=== PATIENT | female | born 1945 | race Two or more races ===

== ENCOUNTER 2017-10-16 18:00 | Inpatient (IN) | payer MEDICARE, BC ==
[2017-10-16] MEDS ORDERED: ONDANSETRON 4 MG/2 ML VIAL IVP PRN (19:03)
[2017-10-16] MEDS ORDERED: HYDROcodone/APAP 5-325MG 1 EACH TAB PO PRN (19:03)
[2017-10-16] MEDS ORDERED: NALOXONE 0.4 MG/ML 1 ML VIAL IV PRN (19:03)
[2017-10-16] MEDS ORDERED: MORPHINE SULFATE 4MG/4ML SYRG IVP PRN (19:08)
[2017-10-16] MEDS ORDERED: SODIUM CHLORIDE 0.9% 2,000 ML IV ONE (19:08)
--- NOTE | 2017-10-16 19:21 | P.GSHP ---
History of Present Illness H&P Date: 10/16/17 CHIEF COMPLAINT: History of ischemic colitis HISTORY OF PRESENT ILLNESS: The patient is a 71-year-old female who comes in with chronic diarrhea for over 5 months since March 2017. She reports being on antibiotics. She also had multiple interventions for urinary tract infection and had been placed on medications as result. She had completed a lower endoscopy last week with findings came back as possible colitis where ischemia cannot be excluded. She comes in with moderate dehydration and is unable to keep anything down. She reports generalized abdominal tenderness and moderate weight loss over 30+ pounds. She comes in also with increased forgetfulness. As result of her symptoms and pathology findings, she is admitted for ischemic colitis. PAST MEDICAL HISTORY: See list. PAST SURGICAL HISTORY: See list. MEDICATIONS: See list. ALLERGIES: See list. SOCIAL HISTORY: Family is at bedside. No illicit drug use FAMILY HISTORY: Hypertension REVIEW OF ORGAN SYSTEMS: CONSTITUTIONAL: No fevers or chills. Weight loss over 30+ pounds in more than a year, unintentional. Reports weakness. HEENT: No troubles with hearing. No reports of dysphagia. She was glasses. ENDOCRINE: Has thyroid disorders. No diabetes. CARDIOVASCULAR: No recent myocardial infarction or congestive heart failure. RESPIRATORY: No asthma. No recent pneumonia. GASTROINTESTINAL: Lower endoscopy last week consistent with colitis. Reports chronic diarrhea. NEURO: No reports of stroke or seizure disorders. PSYCH: No reports of depression or suicidal ideation. HEMATOLOGIC: No easy bruising or bleeding LYMPHATIC: The patient denies any lumps and bumps around the neck. GENITOURINARY: History of recurrent urinary tract infection. MUSCULOSKELETAL: Has back pain, stiffness or joint arthritis. PHYSICAL EXAM: VITAL SIGNS: Currently stable. GENERAL: Well-developed male in no acute distress. HEENT: No sclera icterus. Extraocular movements grossly intact. Dry buccal mucosa. Head is atraumatic, normocephalic. Hears conversational speech. No nasal drainage. NECK: Supple without lymphadenopathy. CHEST: Non-labored respirations and equal bilateral excursions. CARDIOVASCULAR: Regular rate with regular rhythm. Palpable 2+ radial pulses. ABDOMEN: Soft. Nondistended. Generalized discomfort no peritonitis. MUSCULOSKELETAL: No clubbing, cyanosis or edema. NEUROLOGIC: No focal or lateralizing signs. Cranial nerves II through XII grossly intact. PSYCH: Appropriate affect. Alert and oriented to person, place and time. SKIN: Poor skin turgor. Moderate skin tenting consistent with dehydration. LABS: Pending ASSESSMENT: 1. Pathology consistent with possible ischemic colitis 2. Hypothyroidism 3. Unintentional weight loss 4. History of recurrent urinary tract infections 5. Severe dehydration PLAN: 1. Inpatient hospitalization anticipated for more than 2 nights for ischemic colitis 2. Recommend CBC, complete metabolic panel, lipase, magnesium, phosphorus for baseline labs 3. Rehydration, aggressive. 4. Urine sample for history of recurrent urinary tract infections 5. Stool assays including stool cultures for C. diff 6. Correction for electrolyte abnormalities. 7. May need repeat colonoscopy should patient's symptoms continue to progress Past Medical History Additional Past Medical History / Comment(s): KIDNEY STONE History of Any Multi-Drug Resistant Organisms: None Reported Past Surgical History: Hysterectomy Past Psychological History: No Psychological Hx Reported Smoking Status: Former smoker Past Alcohol Use History: None Reported Past Drug Use History: None Reported Medications and Allergies Home Medications Medication Instructions Recorded Confirmed Type Hydrocodone/Acetaminophen [Barrington 1 each PO Q6HR PRN 02/27/14 02/27/14 History 5-325] Ibuprofen [Motrin] 600 mg PO Q6HR PRN #20 tab 02/27/14 Rx Levofloxacin [Levaquin] 500 mg PO DAILY #10 tab 02/27/14 Rx Tamsulosin HCl [Flomax] 0.4 mg PO DAILY #7 cap 02/27/14 Rx traMADol HCl [Ultram] 50 mg PO Q6H PRN 02/27/14 02/27/14 History traMADol HCl [Ultram] 50 mg PO Q6H PRN #20 tab 02/27/14 Rx Allergies Allergy/AdvReac Type Severity Reaction Status Date / Time Penicillins Allergy Unknown Verified 02/27/14 13:11 Surgical - Exam Vital Signs Temp Pulse Resp BP Pulse Ox 97.5 F L 108 H 16 159/77 98 10/16/17 18:58 10/16/17 18:58 10/16/17 18:58 10/16/17 18:58 10/16/17 18:58 Assessment and Plan (1) Ischemic colitis, enteritis, or enterocolitis Current Visit: Yes Status: Acute Code(s): K55.9 - VASCULAR DISORDER OF INTESTINE, UNSPECIFIED SNOMED Code(s): 21432043 (2) Hypothyroidism Current Visit: Yes Status: Acute Code(s): E03.9 - HYPOTHYROIDISM, UNSPECIFIED SNOMED Code(s): 15031249 (3) Weakness Current Visit: Yes Status: Acute Code(s): R53.1 - WEAKNESS SNOMED Code(s) : 72164407 (4) Dehydration syndrome Current Visit: Yes Status: Acute Code(s): E86.0 - DEHYDRATION SNOMED Code( s): 96553758 (5) Chronic diarrhea Current Visit: Yes Status: Acute Code(s): K52.9 - NONINFECTIVE GASTROENTERITIS AND COLITIS, UNSPECIFIED SNOMED Code(s): 208417497 (6) Abdominal pain Current Visit: Yes Status: Acute Code(s): R10.9 - UNSPECIFIED ABDOMINAL PAIN SNOMED Code(s): 13972863
--- NOTE | 2017-10-16 19:36 | XR ---
EXAMINATION TYPE: XR KUB DATE OF EXAM: 10/16/2017 7:30 PM CLINICAL HISTORY: Abdominal pain with history of ischemic colitis TECHNIQUE: Single supine KUB image of the abdomen is obtained. COMPARISON: 02/27/2014. FINDINGS: Scattered gas is seen in non-distended small bowel loops. Gas and fecal material is seen in non-distended colon. There is no visceromegaly, pneumoperitoneum, or abnormal calcification apprecia petra. The lung bases are clear and the osseous structures are intact. At least moderate femoral acetab ular arthropathy is seen bilaterally, right greater than left. There is a levoscoliotic curvature of the lumbar spine with moderate multilevel degenerative changes. Calcifications within the right hemia bdomen may relate to cholelithiasis (the most superior calcification), nephrolithiasis, or may be loc ated within bowel. IMPRESSION: 1. Nonobstructive bowel gas pattern. 2. Right abdominal calcifications are nonspecific and could represent cholelithiasis, nephrolithiasis or be located within bowel.
[2017-10-16 21:02] LABS: Magnesium 1.8 mg/dL (1.6-2.3)
[2017-10-16 21:58] LABS: HGB 14.1 gm/dL (11.4-16.0); MCH 29.7 pg (25.0-35.0); MCV 92.8 fL (80.0-100.0); Mean Platelet Volume 7.7; Platelet Count 294 k/uL (150-450); RBC 4.74 m/uL (3.80-5.40); RDW 13.4 % (11.5-15.5); WBC 7.9 k/uL (3.8-10.6)
[2017-10-16] MEDS: HEPARIN SODIUM,PORCINE 5,000 UNIT/ML 1 ML VIAL SQ SCH (22:01)
[2017-10-16] MEDS: PANTOPRAZOLE 40 MG/10 ML VIAL IVP SCH (22:01)
[2017-10-16 22:02] LABS: Albumin 4.1 g/dL (3.5-5.0); Calcium 10.2 mg/dL (8.4-10.2); Potassium 4.4 mmol/L (3.5-5.1); Total Bilirubin 0.6 mg/dL (0.2-1.3); Total Protein 7.3 g/dL (6.3-8.2)
[2017-10-16 22:13] LABS: Band Neutrophils % 6 %; Eosinophils # (M) 0.16 k/uL (0-0.7); Lymphocytes # (M) 3.71 k/uL (1.0-4.8); Monocytes # (M) 0.16 k/uL (0-1.0); Neutrophils % (M) 43 %; Nucleated Red Blood Cells 0 /100 WBC (0-0); Total Cells Counted 100
[2017-10-16] MEDS: SODIUM CHLORIDE 0.9% 1,000 ML IV SCH (23:00)
[2017-10-17] MEDS: SODIUM CHLORIDE 0.9% 1,000 ML IV SCH (08:57)
[2017-10-17] MEDS: PANTOPRAZOLE 40 MG/10 ML VIAL IVP SCH (08:57)
[2017-10-17] MEDS: HEPARIN SODIUM,PORCINE 5,000 UNIT/ML 1 ML VIAL SQ SCH ×2 (08:57→20:26)
[2017-10-17 09:34] LABS: Albumin 2.9 g/dL (3.5-5.0); Basophils # (A) 0.1 k/uL (0-0.2); Basophils % (A) 2 %; Calcium 9.1 mg/dL (8.4-10.2); Eosinophils # (A) 0.7 k/uL (0-0.7); Eosinophils % (A) 11 %; HCT 38.3 % (34.0-46.0); HGB 12.4 gm/dL (11.4-16.0); Lymphocytes # (A) 1.4 k/uL (1.0-4.8); Lymphocytes % (A) 24 %; MCH 29.9 pg (25.0-35.0); MCHC 32.3 g/dL (31.0-37.0); MCV 92.5 fL (80.0-100.0); Mean Platelet Volume 7.3; Monocytes # (A) 0.2 k/uL (0-1.0); Monocytes % (A) 4 %; Neutrophils # (A) 3.4 k/uL (1.3-7.7); Neutrophils % (A) 57 %; Platelet Count 252 k/uL (150-450); Potassium 3.4 mmol/L (3.5-5.1); RBC 4.14 m/uL (3.80-5.40); RDW 13.3 % (11.5-15.5); Total Bilirubin 0.3 mg/dL (0.2-1.3); Total Protein 5.6 g/dL (6.3-8.2); WBC 5.9 k/uL (3.8-10.6)
[2017-10-17 09:39] LABS: Appearance,Urine Clear (Clear); Bacteria,Urine Rare /hpf; Bilirubin,Urine Negative (Negative); Blood,Urine Negative (Negative); Calcium Oxalate Crystals,Urine Rare /hpf; Color,Urine Yellow; Glucose,Urine (UA) Negative (Negative); Hyaline Casts,Urine 1 /lpf (0-2); Ketones,Urine Trace (Negative); Leukocyte Esterase,Urine Moderate (Negative); Mucus,Urine Rare /hpf; Nitrite,Urine Negative (Negative); PH, Urine 5.5 (5.0-8.0); Protein,Urine Negative (Negative); RBC,Urine 5 /hpf (0-5); Specific Gravity,Urine 1.014 (1.001-1.035); Squamous Epithelial Cell,Urine 2 /hpf (0-4); Urobilinogen,Urine <2.0 mg/dL (<2.0); WBC,Urine 26 /hpf (0-5)
[2017-10-17] MEDS: MAGNESIUM SULFATE-D5W PMX 1 GM in DEXTROSE/WATER 1 100ML.BAG IVPB SCH ×6 (10:32→21:45)
--- NOTE | 2017-10-17 10:32 | P.PN ---
<VaibhavAnnemarie M - Last Filed: 10/17/17 14:13> Subjective Progress Note Date: 10/17/17 -71 year-old female seen at bedside. Patient states had 2oose stools this morning. Continues to report having generalized abdominal discomfort. Reports a nausea sensation no active emesis. Did have a KUB done last evening the report indicate nonobstructive bowel gas pattern. Right abdominal calcification nonspecific could represent cholelithiasis. Patient is scheduled today for a HIDA scan. To rule out cholelithiasis Stool for C. diff negative. Stool for occult blood negative Patients being treated for pathology consistent with possible ischemic colitis, oral intake and severe dehydration. Due to poor oral intake secondary to nausea vomiting Objective - Vital Signs Vital signs: Vital Signs Temp 97.7 F 10/17/17 08:02 Pulse 76 10/17/17 08:02 Resp 16 10/17/17 08:02 BP 116/53 10/17/17 08:02 Pulse Ox 96 10/17/17 08:02 Intake & Output 10/16/17 10/17/17 10/17/17 18:59 06:59 18:59 Intake Total 2700 Output Total 200 Balance 2500 Weight 51 kg Intake: Intake, IV Titration 2700 Amount Sodium Chloride 0.9% 1, 700 000 ml @ 100 mls/hr IV . Q10H ROBERTO Rx#:[id number] Sodium Chloride 0.9% 2, 2000 000 ml @ 999 mls/hr IV . Q2H1M ONE Rx#:[id number] Output: Urine 200 Other: # Voids 1 # Bowel Movements 1 - Exam Physical exam 71-year-old female pleasant oriented 3 resting Lungs adequate air movement bilaterally on room air Heart S1-S2 audible regular Abdomen soft diffuse tenderness across the abdominal wall bowel tones present reports having 2 loose stools this morning reports a nausea sensation no active emesis urinating no difficulty Extremities no edema - Labs CBC & Chem 7: 10/17/17 08:58 10/17/17 08:58 Labs: Abnormal Lab Results - Last 24 Hours (Table) 10/16/17 10/17/17 10/17/17 Range/Units 19:33 08:30 08:58 Potassium 3.4 L (3.5-5.1) mmol/L Chloride 108 H 114 H (98-107) mmol/L Carbon Dioxide 21 L 21 L (22-30) mmol/L Creatinine 1.05 H (0.52-1.04) mg/dL Glucose 125 H (74-99) mg/dL AST 45 H (14-36) U/L Total Protein 5.6 L (6.3-8.2) g/dL Albumin 2.9 L (3.5-5.0) g/dL Urine Ketones Trace H (Negative) Ur Leukocyte Esterase Moderate H (Negative) Urine WBC 26 H (0-5) /hpf Calcium Oxalate Crystal Rare H (None) /hpf Urine Bacteria Rare H (None) /hpf Urine Mucus Rare H (None) /hpf Assessment and Plan Assessment: Assessment and Plan (1) Ischemic colitis, enteritis, or enterocolitis Current Visit: Yes Status: Acute Code(s): K55.9 - VASCULAR DISORDER OF INTESTINE, UNSPECIFIED SNOMED Code(s): 87467253 (2) Hypothyroidism Current Visit: Yes Status: Acute Code(s): E03.9 - HYPOTHYROIDISM, UNSPECIFIED SNOMED Code(s): 77308023 (3) Weakness Current Visit: Yes Status: Acute Code(s): R53.1 - WEAKNESS SNOMED Code(s) : 37086461 (4) Dehydration syndrome Current Visit: Yes Status: Acute Code(s): E86.0 - DEHYDRATION SNOMED Code( s): 26799647 (5) Chronic diarrhea Current Visit: Yes Status: Acute Code(s): K52.9 - NONINFECTIVE GASTROENTERITIS AND COLITIS, UNSPECIFIED SNOMED Code(s): 889964659 (6) Abdominal pain Current Visit: Yes Status: Acute Code(s): R10.9 - UNSPECIFIED ABDOMINAL PAIN SNOMED Code(s): 76110910 #7 severe electrolyte imbalance hypokalemia corrected resolved Plan Potassium to be replaced check a magnesium level Follow up on the HIDA scan IV fluid as ordered Further recommendations pending Follow-up on pending stool studies The above impression and plan of care have been discussed and directed by signing physician. Annemarie Esposito nurse practitioner acting as scribe for signing physician. <Eufemia Salazar - Last Filed: 10/17/17 19:07> Objective - Vital Signs Vital signs: Vital Signs Temp 97 F L 10/17/17 14:51 Pulse 82 10/17/17 14:51 Resp 16 10/17/17 14:51 BP 132/68 10/17/17 14:51 Pulse Ox 99 10/17/17 14:51 Intake & Output 10/17/17 10/17/17 10/18/17 06:59 18:59 06:59 Intake Total 3450 Output Total 200 Balance 3250 Weight 51 kg Intake: IV 750 0.9% NaCl with KCl 40 Meq 150 /l 1,000 ml @ 75 mls/hr IV .[id number] ROBERTO Rx#: [id number] Sodium Chloride 0.9% 1, 600 000 ml @ 100 mls/hr IV . Q10H ROBERTO Rx#:[id number] Intake, IV Titration 2700 Amount Sodium Chloride 0.9% 1, 700 000 ml @ 100 mls/hr IV . Q10H ROBRETO Rx#:[id number] Sodium Chloride 0.9% 2, 2000 000 ml @ 999 mls/hr IV . Q2H1M ONE Rx#:[id number] Output: Urine 200 Other: Voiding Method Toilet # Voids 2 # Bowel Movements 2 - Labs CBC & Chem 7: 10/17/17 08:58 10/17/17 08:58 Labs: Abnormal Lab Results - Last 24 Hours (Table) 10/16/17 10/17/17 10/17/17 Range/Units 19:33 08:30 08:58 Potassium 3.4 L (3.5-5.1) mmol/L Chloride 108 H 114 H (98-107) mmol/L Carbon Dioxide 21 L 21 L (22-30) mmol/L Creatinine 1.05 H (0.52-1.04) mg/dL Glucose 125 H (74-99) mg/dL Magnesium (1.6-2.3) mg/dL AST 45 H (14-36) U/L Total Protein 5.6 L (6.3-8.2) g/dL Albumin 2.9 L (3.5-5.0) g/dL Urine Ketones Trace H (Negative) Ur Leukocyte Esterase Moderate H (Negative) Urine WBC 26 H (0-5) /hpf Calcium Oxalate Crystal Rare H (None) /hpf Urine Bacteria Rare H (None) /hpf Urine Mucus Rare H (None) /hpf 10/17/17 Range/Units 08:58 Potassium (3.5-5.1) mmol/L Chloride (98-107) mmol/L Carbon Dioxide (22-30) mmol/L Creatinine (0.52-1.04) mg/dL Glucose (74-99) mg/dL Magnesium 1.5 L (1.6-2.3) mg/dL AST (14-36) U/L Total Protein (6.3-8.2) g/dL Albumin (3.5-5.0) g/dL Urine Ketones (Negative) Ur Leukocyte Esterase (Negative) Urine WBC (0-5) /hpf Calcium Oxalate Crystal (None) /hpf Urine Bacteria (None) /hpf Urine Mucus (None) /hpf Microbiology - Last 24 Hours (Table) 10/17/17 09:13 Stool Culture - Preliminary Stool Assessment and Plan (1) Ischemic colitis, enteritis, or enterocolitis Current Visit: Yes Status: Acute Code(s): K55.9 - VASCULAR DISORDER OF INTESTINE, UNSPECIFIED SNOMED Code(s): 70980111 (2) Hypothyroidism Current Visit: Yes Status: Acute Code(s): E03.9 - HYPOTHYROIDISM, UNSPECIFIED SNOMED Code(s): 44199017 (3) Weakness Current Visit: Yes Status: Acute Code(s): R53.1 - WEAKNESS SNOMED Code(s) : 02019608 (4) Dehydration syndrome Current Visit: Yes Status: Acute Code(s): E86.0 - DEHYDRATION SNOMED Code( s): 61809259 (5) Chronic diarrhea Current Visit: Yes Status: Acute Code(s): K52.9 - NONINFECTIVE GASTROENTERITIS AND COLITIS, UNSPECIFIED SNOMED Code(s): 259814535 (6) Abdominal pain Current Visit: Yes Status: Acute Code(s): R10.9 - UNSPECIFIED ABDOMINAL PAIN SNOMED Code(s): 53298416
[2017-10-17] MEDS: POTASSIUM CHLORIDE ER 20 MEQ TAB.ER PO SCH ×2 (11:08→12:24)
[2017-10-17] MEDS: 0.9% NACL WITH KCL 40 MEQ/L 1,000 ML IV SCH (13:26)
--- NOTE | 2017-10-17 15:12 | US ---
EXAMINATION TYPE: US gallbladder DATE OF EXAM: 10/17/2017 COMPARISON: CT CLINICAL HISTORY: Right upper quadrant pain; colitis, diverticulosis per patient EXAM MEASUREMENTS: Liver Length: 13.9 cm Gallbladder Wall: 0.1 cm CBD: 0.4 cm Right Kidney: 11.1 x 6.5 x 5.4 cm Left Kidney: 10.6 x 4.7 x 4.4cm Pancreas: wnl Liver: wnl Gallbladder: mobile shadowing stone is noted = 1.1 x 1.0 x 0.4cm Evidence for sonographic Mann's sign: No CBD: wnl Right Kidney: moderate hydronephrosis; multiple renal shadowing stones: upper pole = 1.2 x 1.4 x 0.6 cm, mid lower pole = 0.9 x 1.0 x 0.3cm. Left Kidney was surveyed for comparison due to rt sided hydronephrosis: no masses or hydronephrosis i s seen in left kidney. IMPRESSION: 1. Cholelithiasis. 2. Right renal lithiasis with moderate right hydronephrosis.
--- NOTE | 2017-10-17 19:08 | NM ---
EXAMINATION TYPE: NM hepatobiliary w CCK DATE OF EXAM: 10/17/2017 COMPARISON: NONE HISTORY: Pain TECHNIQUE: After the intravenous administration of 4.52 mCi Tc 99m Mebrofenin hepatobiliary scintigra phy is performed. Immediate images post injection. FINDINGS: There is satisfactory initial accumulation of tracer by the liver. The gallbladder is visualized wit hin 10 minutes. The small bowel activity is noted within 90 minutes. Following the administration of CCK, when the patient was injected with 1.02 mcg of Kinevac, the gall bladder ejection fraction is calculated at 71 %, in the normal range. Therefore there is no scintigr aphic evidence of cystic or common bile duct obstruction to suggest acute cholecystitis or gallbladde r dyskinesia. IMPRESSION: Exam is within normal limits.
[2017-10-17] MEDS ORDERED: MORPHINE ORAL SOLN 10 MG/5 ML CUP PO PRN (19:19)
[2017-10-17] MEDS: DIPHENOX-ATROP 2.5-0.025 MG 1 EACH TAB PO SCH (22:30)
[2017-10-18] MEDS: 0.9% NACL WITH KCL 40 MEQ/L 1,000 ML IV SCH (05:19)
[2017-10-18 07:11] LABS: Calcium 8.6 mg/dL (8.4-10.2); Magnesium 2.5 mg/dL (1.6-2.3); Potassium 4.2 mmol/L (3.5-5.1)
[2017-10-18] MEDS: HEPARIN SODIUM,PORCINE 5,000 UNIT/ML 1 ML VIAL SQ SCH ×2 (08:19→22:25)
[2017-10-18] MEDS: ASPIRIN 81 MG PO SCH (08:19)
[2017-10-18] MEDS: DIPHENOX-ATROP 2.5-0.025 MG 1 EACH TAB PO SCH ×4 (08:19→23:17)
[2017-10-18] MEDS: PANTOPRAZOLE 40 MG/10 ML VIAL IVP SCH (08:19)
--- NOTE | 2017-10-18 11:33 | P.PN ---
<Manuela Espositone M - Last Filed: 10/18/17 13:30> Subjective Progress Note Date: 10/18/17 71-year-old sitting up in bed states has had 1 loose stool this morning after eating with less abdominal bloating. Patient did have a HIDA scan done yesterday the calculated EF 71%. Ultrasound of the gallbladder done on the fourth impression cholelithiasis. Patient continues to report having discomfort in the right upper quadrant stool was negative for C. diff. Stool culture pending stool for WBC negative Patient has a history of being told that she had a heart attack not sure of the timing sees a continuity tester at [facility] last seen 3 months ago is denying any chest pain heart palpitations dizziness or lightheadedness Objective - Vital Signs Vital signs: Vital Signs Temp 98.0 F 10/18/17 07:00 Pulse 70 10/18/17 07:00 Resp 16 10/18/17 07:00 BP 106/67 10/18/17 07:00 Pulse Ox 96 10/18/17 07:00 Intake & Output 10/17/17 10/18/17 10/18/17 18:59 06:59 18:59 Intake Total 3450 800 Output Total 200 Balance 3250 800 Intake: IV 750 600 0.9% NaCl with KCl 40 Meq 150 600 /l 1,000 ml @ 75 mls/hr IV .[id number] ROBERTO Rx#: [id number] Sodium Chloride 0.9% 1, 600 000 ml @ 100 mls/hr IV . Q10H ROBERTO Rx#:[id number] Intake, IV Titration 2700 Amount Sodium Chloride 0.9% 1, 700 000 ml @ 100 mls/hr IV . Q10H ROBERTO Rx#:[id number] Sodium Chloride 0.9% 2, 2000 000 ml @ 999 mls/hr IV . Q2H1M ONE Rx#:[id number] Oral 200 Output: Urine 200 Other: Voiding Method Toilet Toilet # Voids 2 3 # Bowel Movements 2 3 - Exam Physical exam 71-year-old female sitting up in bed states had one bowel movement this morning after eating Lungs adequate air movement bilaterally on room air no shortness of breath noted Heart S1-S2 audible regular denying chest pain when questioning Abdomen soft right upper quadrant abdominal discomfort bowel tones present reports having 1 loose stools this morning reports a nausea sensation no active emesis urinating no difficulty tolerating a diet Extremities no edema - Labs CBC & Chem 7: 10/17/17 08:58 10/18/17 06:30 Labs: Abnormal Lab Results - Last 24 Hours (Table) 10/18/17 Range/Units 06:30 Chloride 113 H (98-107) mmol/L Carbon Dioxide 20 L (22-30) mmol/L Magnesium 2.5 H (1.6-2.3) mg/dL Microbiology - Last 24 Hours (Table) 10/17/17 09:13 Stool for WBCs - Final Stool 10/17/17 09:13 Stool Culture - Preliminary Stool Assessment and Plan Assessment: Assessment and Plan (1) Ischemic colitis, enteritis, or enterocolitis Current Visit: Yes Status: Acute Code(s): K55.9 - VASCULAR DISORDER OF INTESTINE, UNSPECIFIED SNOMED Code(s): 94102635 (2) Hypothyroidism Current Visit: Yes Status: Acute Code(s): E03.9 - HYPOTHYROIDISM, UNSPECIFIED SNOMED Code(s): 71494721 (3) Weakness Current Visit: Yes Status: Acute Code(s): R53.1 - WEAKNESS SNOMED Code(s) : 13328784 (4) Dehydration syndrome Current Visit: Yes Status: Acute Code(s): E86.0 - DEHYDRATION SNOMED Code( s): 77181887 (5) Chronic diarrhea Current Visit: Yes Status: Acute Code(s): K52.9 - NONINFECTIVE GASTROENTERITIS AND COLITIS, UNSPECIFIED SNOMED Code(s): 960015870 C. diff negative stool studies negative (6) Abdominal pain Current Visit: Yes Status: Acute Code(s): R10.9 - UNSPECIFIED ABDOMINAL PAIN SNOMED Code(s): 41264674 #7 severe electrolyte imbalance hypokalemia corrected resolved #8 ultrasound gallbladder cholelithiasis mobile shadowing gallstone noted History of coronary artery disease Plan Will order an echocardiogram Stat EKG now Consult cardiology for cardiac clearance for surgical procedure tomorrow Nothing by mouth after midnight Scheduled SundayOctober 19 for laparoscopy cholecystectomy Questran as ordered Lomotil as ordered DVT and GI prophylaxis IV fluid as ordered Further recommendations pending The above impression and plan of care have been discussed and directed by signing physician. Annemarie Esposito nurse practitioner acting as scribe for signing physician. <Eufemia Salazar N - Last Filed: 10/19/17 19:06> Objective - Vital Signs Vital signs: Vital Signs Temp 98.4 F 10/19/17 18:14 Pulse 74 10/19/17 19:00 Resp 18 10/19/17 19:00 BP 163/70 10/19/17 19:00 Pulse Ox 94 L 10/19/17 19:00 Intake & Output 10/19/17 10/19/17 10/20/17 06:59 18:59 06:59 Intake Total 1900 150 Output Total 5 Balance 1895 150 Intake: IV 1900 150 0.9% NaCl with KCl 40 Meq 600 /l 1,000 ml @ 75 mls/hr IV .[id number] ROBERTO Rx#: [id number] Output: Estimated Blood Loss 5 Other: Voiding Method Toilet # Voids 2 - Labs CBC & Chem 7: 10/17/17 08:58 10/19/17 08:10 Labs: Abnormal Lab Results - Last 24 Hours (Table) 10/19/17 Range/Units 08:10 Chloride 109 H (98-107) mmol/L Creatinine 1.07 H (0.52-1.04) mg/dL Assessment and Plan (1) Ischemic colitis, enteritis, or enterocolitis Current Visit: Yes Status: Acute Code(s): K55.9 - VASCULAR DISORDER OF INTESTINE, UNSPECIFIED SNOMED Code(s): 39230653 (2) Hypothyroidism Current Visit: Yes Status: Acute Code(s): E03.9 - HYPOTHYROIDISM, UNSPECIFIED SNOMED Code(s): 15120136 (3) Weakness Current Visit: Yes Status: Acute Code(s): R53.1 - WEAKNESS SNOMED Code(s) : 91751829 (4) Dehydration syndrome Current Visit: Yes Status: Acute Code(s): E86.0 - DEHYDRATION SNOMED Code( s): 43107954 (5) Chronic diarrhea Current Visit: Yes Status: Acute Code(s): K52.9 - NONINFECTIVE GASTROENTERITIS AND COLITIS, UNSPECIFIED SNOMED Code(s): 665074278 (6) Abdominal pain Current Visit: Yes Status: Acute Code(s): R10.9 - UNSPECIFIED ABDOMINAL PAIN SNOMED Code(s): 10895526
--- NOTE | 2017-10-18 12:12 | P.GSCN ---
History of Present Illness Consult date: 10/18/17 Reason for Consult: Right hydronephrosis History of present illness: The patient is a 71-year-old female admitted for evaluation of persistent diarrhea. As part of her evaluation a gallbladder ultrasound was obtained on 10/16. This identified moderate right hydroureteronephrosis and what appeared to be multiple renal calculi. Urologic consultation was requested for further evaluation. The patient has a history of urolithiasis and first underwent ESWL for treatment of a calculus 10 years ago. Computed tomography scan of the abdomen on 02/27/2014 identified by 5 mm calculus the left ureterovesical junction which was treated with ureteroscopy and lithotripsy by Dr. Ashraf on 03/06/2014. An 8 x 5 mm calculus at the right ureteropelvic junction was also present and was treated by Dr. Ashraf with ESWL on 04/14/2014. Mariela has not been seen back in follow-up since 2013. She denies any gross hematuria. She has had occasional urinary tract infections in the past but none have recurred recently. She usually voids every 3 hours during the day and once or twice at night. She denies any abdominal or flank pain at the present time. Review of Systems - Constitutional Denies chills, Denies fever - Cardiovascular Denies chest pain, Denies shortness of breath - Respiratory Denies cough - Gastrointestinal Reports diarrhea (The patient says the diarrhea has been present for several months) - Genitourinary Genitourinary: Reports as per HPI Past Medical History Past Medical History: Myocardial Infarction ([place]) Additional Past Medical History / Comment(s): KIDNEY STONE Last Myocardial Infarction Date:: 2014 History of Any Multi-Drug Resistant Organisms: None Reported Past Surgical History: Hysterectomy Additional Past Surgical History / Comment(s): Left ureteroscopy with lithotripsy 03/06/2014 and extracorporeal shockwave lithotripsy of right renal calculus 04/14/2014 Past Psychological History: No Psychological Hx Reported Smoking Status: Former smoker Past Alcohol Use History: None Reported Past Drug Use History: None Reported - Past Family History Mother Family Medical History: Cancer Additional Family Medical History / Comment(s): Breast Cancer Sister(s) Family Medical History: Cancer Additional Family Medical History / Comment(s): Breast Cancer Medications and Allergies Home Medications Medication Instructions Recorded Confirmed Type Aspirin [Adult Low Dose Aspirin EC] 81 mg PO DAILY 10/16/17 10/16/17 History Biotin 5 mg PO DAILY 10/16/17 10/16/17 History Calcium Carbonate [Calcium] 600 mg PO DAILY 10/16/17 10/16/17 History Cholecalciferol (Vitamin D3) 10,000 unit PO DAILY 10/16/17 10/16/17 History [Vitamin D3] Ciprofloxacin HCl [Cipro] 500 mg PO BID 10/16/17 10/16/17 History Potassium 99 mg PO DAILY 10/16/17 10/16/17 History Ubidecarenone [Co Q-10] 100 mg PO DAILY 10/16/17 10/16/17 History metroNIDAZOLE [Flagyl] 500 mg PO BID 10/16/17 10/16/17 History Allergies Allergy/AdvReac Type Severity Reaction Status Date / Time Latex, Natural Rubber Allergy Rash/Hives Verified 10/16/17 19:58 Penicillins Allergy Unknown Verified 10/16/17 19:58 Childhood Surgical - Exam Vital Signs Temp Pulse Resp BP Pulse Ox 97.5 F L 108 H 16 159/77 98 10/16/17 18:58 10/16/17 18:58 10/16/17 18:58 10/16/17 18:58 10/16/17 18:58 - General well developed, well nourished, no distress - Respiratory normal respiratory effort - Abdomen Abdomen: soft, non tender, no organomegaly - Psychiatric memory intact Results - Labs 10/17/17 08:58 10/18/17 06:30 Abnormal Lab Results - Last 24 Hours (Table) 10/18/17 Range/Units 06:30 Chloride 113 H (98-107) mmol/L Carbon Dioxide 20 L (22-30) mmol/L Magnesium 2.5 H (1.6-2.3) mg/dL Microbiology - Last 24 Hours (Table) 10/17/17 09:13 Stool for WBCs - Final Stool 10/17/17 09:13 Stool Culture - Preliminary Stool Diabetes panel 10/18/17 Range/Units 06:30 Sodium 142 (137-145) mmol/L Potassium 4.2 (3.5-5.1) mmol/L Chloride 113 H (98-107) mmol/L Carbon Dioxide 20 L (22-30) mmol/L BUN 9 (7-17) mg/dL Creatinine 0.97 (0.52-1.04) mg/dL Glucose 93 (74-99) mg/dL Calcium 8.6 (8.4-10.2) mg/dL Calcium panel 10/18/17 Range/Units 06:30 Calcium 8.6 (8.4-10.2) mg/dL Pituitary panel 10/18/17 Range/Units 06:30 Sodium 142 (137-145) mmol/L Potassium 4.2 (3.5-5.1) mmol/L Chloride 113 H (98-107) mmol/L Carbon Dioxide 20 L (22-30) mmol/L BUN 9 (7-17) mg/dL Creatinine 0.97 (0.52-1.04) mg/dL Glucose 93 (74-99) mg/dL Calcium 8.6 (8.4-10.2) mg/dL Adrenal panel 10/18/17 Range/Units 06:30 Sodium 142 (137-145) mmol/L Potassium 4.2 (3.5-5.1) mmol/L Chloride 113 H (98-107) mmol/L Carbon Dioxide 20 L (22-30) mmol/L BUN 9 (7-17) mg/dL Creatinine 0.97 (0.52-1.04) mg/dL Glucose 93 (74-99) mg/dL Calcium 8.6 (8.4-10.2) mg/dL Assessment and Plan (1) Hydronephrosis Narrative/Plan: I reviewed the patient's renal ultrasound and it does show moderate right hydronephrosis. It's unclear on the basis of the ultrasound whether the patient has a calculus at the ureteropelvic junction causing obstruction or whether the obstruction is from another cause. The patient's renal function is normal at the present time and she has no pain related to the right kidney. Once the patient has been discharged she should set up an appointment to see for follow-up. He will most likely set up a computed tomography scan to reassess the kidney as it is possible that she will need repeat ESWL or ureteroscopy if she has another obstructive calculus. Current Visit: Yes Status: Acute Code(s): N13.30 - UNSPECIFIED HYDRONEPHROSIS SNOMED Code(s): 70572743
[2017-10-18] MEDS: CHOLESTYRAMINE (WITH SUGAR) 4 GM PACKET PO SCH ×3 (12:25→22:26)
--- NOTE | 2017-10-18 15:05 | ECHOF ---
Referral Reason:LV function MEASUREMENTS -------- HEIGHT: 154.9 cm WEIGHT: 50.8 kg BP: IVSd: 0.8 cm (0.6 - 1.1) LVIDd: 3.4 cm (3.9 - 5.3) LVPWd: 1.0 cm (0.6 - 1.1) IVSs: 1.3 cm LVIDs: 2.3 cm LVPWs: 1.0 cm RVIDd: 2.3 cm (< 3.3) LAESV Index (A-L): 19.59 ml/m Ao Diam: 2.7 cm (2.0 - 3.7) LA Diam: 2.1 cm (2.7 - 3.8) AV Cusp: 1.6 cm (1.5 - 2.6) EPSS: 0.4 cm MV E Abbe: 1.14 m/s MV DecT: 229 ms MV A Abbe: 0.83 m/s MV E/A Ratio: 1.38 RAP: 15.00 mmHg RVSP: 46.62 mmHg MV EF SLOPE: 85.22 mm/s (70 - 150) MV EXCURSION: 1.19 cm (> 18.000) FINDINGS -------- Sinus rhythm. This was a technically good study. The left ventricular size is normal. Left ventricular wall thickness is normal. Overall left vent ricular systolic function is normal with, an EF between 55 - 60 %. The right ventricle is normal in size and function. Normal LA size by volume 22+/-6 ml/m2. The right atrium is normal in size. Aortic valve is trileaflet and is mildly thickened. There is no evidence of aortic regurgitation. There is no evidence of aortic stenosis. The mitral valve leaflets are mildly thickened. Mild mitral regurgitation is present. Mild tricuspid regurgitation present. There is mild pulmonary hypertension. The right ventricular systolic pressure, as measured by Doppler, is 46.62mmHg. The pulmonic valve was not well visualized. The aortic root size is normal. The inferior vena cava is dilated with poor inspiratory collapse which is consistent with estimated r ight atrial pressure of 20 mmHg. There is no pericardial effusion. CONCLUSIONS -------- 1. Sinus rhythm. 2. This was a technically good study. 3. The left ventricular size is normal. 4. Left ventricular wall thickness is normal. 5. Overall left ventricular systolic function is normal with, an EF between 55 - 60 %. 6. Normal LA size by volume 22+/-6 ml/m2. 7. Aortic valve is trileaflet and is mildly thickened. 8. The mitral valve leaflets are mildly thickened. 9. Mild mitral regurgitation is present. 10. Mild tricuspid regurgitation present. 11. There is mild pulmonary hypertension. 12. The right ventricular systolic pressure, as measured by Doppler, is 46.62mmHg. 13. The pulmonic valve was not well visualized. 14. The aortic root size is normal. 15. The inferior vena cava is dilated with poor inspiratory collapse which is consistent with estimat ed right atrial pressure of 20 mmHg. 16. There is no pericardial effusion. HAND DRAWER IN HELPER: Gino Washington RDCS
[2017-10-18] MEDS: SODIUM CHLORIDE 0.9% 1,000 ML IV SCH (15:39)
--- NOTE | 2017-10-18 16:34 | CONS ---
CONSULTATION Christine Bryant is a 71-year-old female who presented with recurrent diarrhea, and she was found to have a positive HIDA scan and is awaiting gallbladder surgery. From a cardiac standpoint, she has no symptoms. She denies any chest discomfort. No dizziness , lightheadedness. No shortness of breath. No orthopnea or PND. She has no abdominal pain or epigastric pain, either. Her past medical history is significant for coronary artery disease and an AR, according to the patient, but she has been taken off all her medications, so the history is extremely sketchy. She saw a load test mechanic at the [facility] who asked her to follow up in a year, and apparently all her medications were discontinued. Medications at home include: 1. Flagyl. 2. Ciprofloxacin. 3. Coenzyme Q10. 4. Potassium. 5. Calcium. 6. Biotin. 7. Aspirin. She is not on any cardiac medication. ALLERGIES: PENICILLIN. REVIEW OF SYSTEMS: No fever, chills or rigors. No cough or expectoration. No nausea, vomiting or diarrhea, hematuria or dysuria. No strokes, seizures or skin lesions. No musculoskeletal complaints. PHYSICAL EXAMINATION: Her vitals are stable. Blood pressure is 112/71 mmHg, pulse rate in the 70s. Afebrile, 98.9 degrees Fahrenheit. Head and neck examination is normal. Heart sounds S1, S2 are normal. No murmurs or gallops. No rub. Breath sounds are clear. No rhonchi. No crackles. ABDOMEN: Soft. Extremities are warm. No edema. She underwent a 12-lead ECG; however, it has not been scanned in the EMR. I would suggest adding atorvastatin 20 mg p.o. daily to her current regimen and proceeding with surgery as long as her 12-lead ECG and 2D echo are within normal limits. The echo has been done today, and I will review it. I do not see an EKG either in the chart or scanned into the EMR. Lead ECG was reviewed later. Sinus rhythm normal ST segments 2-D echo and Doppler study was reviewed , with preserved LV systolic function Suggest proceed with surgery as clinically appropriate MMODL / IJN: [id number] / MTDD
[2017-10-19] MEDS: SODIUM CHLORIDE 0.9% 1,000 ML IV SCH ×2 (07:38→21:55)
--- NOTE | 2017-10-19 08:04 | P.PN ---
Progress Note - Text Progress Note Date: 10/19/17 Patient seen and evaluated. All studies reviewed including consultants recommendations. Patient has symptomatic gallstones. We'll proceed with cholecystectomy.
[2017-10-19 08:48] LABS: Albumin 3.5 g/dL (3.5-5.0); Calcium 9.4 mg/dL (8.4-10.2); Potassium 4.4 mmol/L (3.5-5.1); Total Bilirubin 0.4 mg/dL (0.2-1.3); Total Protein 6.3 g/dL (6.3-8.2)
[2017-10-19] MEDS: CHOLESTYRAMINE (WITH SUGAR) 4 GM PACKET PO SCH ×3 (08:54→21:59)
[2017-10-19] MEDS: DIPHENOX-ATROP 2.5-0.025 MG 1 EACH TAB PO SCH ×4 (08:55→21:59)
[2017-10-19] MEDS: HEPARIN SODIUM,PORCINE 5,000 UNIT/ML 1 ML VIAL SQ SCH ×2 (09:01→21:54)
[2017-10-19] MEDS: PANTOPRAZOLE 40 MG/10 ML VIAL IVP SCH (09:02)
[2017-10-19] MEDS: ASPIRIN 81 MG PO SCH (10:33)
[2017-10-19] MEDS ORDERED: ceFAZolin IN SWFI 2 GM/20 ML SYRINGE IVP STA (14:27)
--- NOTE | 2017-10-19 14:27 | P.HPADDEND ---
H&P Addendum H&P Addendum Date: 10/19/17 Patient has symptomatic cholelithiasis. We'll proceed with cholecystectomy
[2017-10-19] MEDS ORDERED: IV FLUID CONTINUATION 1,000 ML IV ONE (15:46)
[2017-10-19] MEDS ORDERED: LACTATED RINGERS 1,000 ML IV ONE ×2 (15:46→18:10)
[2017-10-19] MEDS ORDERED: DEXAMETHASONE SOD PHOS (MDV) 100 MG/10 ML VIAL IVP ONE (15:47)
[2017-10-19] MEDS ORDERED: ROCURONIUM BROMIDE 10 MG/ML 10 ML VIAL IV ONE (17:11)
[2017-10-19] MEDS ORDERED: MIDAZOLAM 2 MG/2 ML VIAL ONE (17:11)
[2017-10-19] MEDS ORDERED: fentaNYL (PF) 50 MCG/ML 2 ML AMP ONE (17:11)
[2017-10-19] MEDS ORDERED: GLYCOPYRROLATE 0.2 MG/ML 2 ML VIAL ONE (17:11)
[2017-10-19] MEDS ORDERED: PROPOFOL 10 MG/ML 20 ML VIAL IV ONE (17:11)
[2017-10-19] MEDS ORDERED: LIDOCAINE 1% INJ 10MG/ML (20 ML MDV) ONE (17:11)
[2017-10-19] MEDS ORDERED: SUCCINYLCHOLINE CHLORIDE 100 MG/5 ML SYR IV ONE (17:11)
[2017-10-19] MEDS ORDERED: NEOSTIGMINE 1 MG/ML 10 ML VIAL ONE (17:11)
[2017-10-19] MEDS ORDERED: BUPIVACAINE (PF) 0.25% 30 ML VIAL SQ ONE ×2 (17:11→17:34)
[2017-10-19] MEDS ORDERED: SODIUM CHLORIDE 0.9% 50 ML with ceFAZolin 2,000 MG IV ONE ×2 (17:11)
--- NOTE | 2017-10-19 17:59 | P.OP ---
Date of Procedure: 10/19/17 Description of Procedure: SURGEON: DARWIN CORONA MD RESEARCH & INSIGHTS EXECUTIVE: ABE IVAN PREOPERATIVE DIAGNOSES: 1. Symptomatic gallstone 2. History of ischemic colitis 3. Chronic diarrhea 4. Kidney stones with hydronephrosis, right side 5. Right upper quadrant abdominal pain. 6. Past history of myocardial infarction POSTOPERATIVE DIAGNOSES: 1. Symptomatic gallstone 2. History of ischemic colitis 3. Chronic diarrhea 4. Kidney stones with hydronephrosis, right side 5. Right upper quadrant abdominal pain. 6. Past history of myocardial infarction OPERATION: Robotic-assisted da Katarzyna Xi laparoscopic cholecystectomy, multiport without FIREFLY ESTIMATED BLOOD LOSS: 5 mL. SPECIMENS REMOVED: Gallbladder. COMPLICATIONS: None. OPERATIVE FINDINGS: 1. Chronic cholecystitis with multiple gallstone. INDICATIONS: The patient is a 71-year-old female who presents with ischemic colitis including symptomatic cholelithiasis. Surgical intervention with a laparoscopic cholecystectomy was described at length including injury to the biliary tree, bleeding, infection, need for further surgery. Informed consent was obtained. Robotic assisted laparoscopic approach was described. Benefits and risks of the procedure including but not limited to bleeding, infection, injury to the biliary tree was described. Informed consent was obtained. DESCRIPTION OF PROCEDURE: Patient was brought to the operating room, placed in supine position. After general induction, the abdomen had been prepped and draped in standard sterile fashion. The robotic da Katarzyna XI system was primed. After a timeout protocol was performed, the patient had been prepped and draped in standard sterile fashion. The robot was docked along the left lateral abdomen. The patient was repositioned in reverse Trendelenburg position. Please note prior to docking of the robot; however, a 5 mm 0 degrees laparoscopic trocar entry was performed along the left upper quadrant. Next, two 8 mm robotic ports were placed along the right upper abdomen. The camera 8-mm port was maintained along the epigastrium. Another 8 mm port was placed along the left upper abdominal wall after exchanging the 5 mm port. Please note that the ports were placed at least 10 to 15 cm away from the target anatomy of the gallbladder. Using a grasper for arm 3, a grasper for arm 2, including hook cautery for arm 1 , the robotic system was docked and primed as described. Instruments were interchanged by the back office medical assistant including hook cautery, Bovie cautery scissors and clip appliers. I had sat at the console. Adhesions were identified along the infundibulum of the gallbladder and addressed using hook cautery. The gallbladder fundus was retracted over the dome of the liver. Initial attention was brought to the infundibulum which was gently retracted in the inferior lateral approach. Using a grasper, the cystic duct including the cystic artery was carefully skeletonized. Using a clip reel operator 2 large PLASTIC clips were placed proximally, and 1 clip was placed distally along the cystic duct and then cauterized with the cautery. Again care was taken to avoid any injury to the biliary tree as the common bile duct was clearly visualized during this portion of dissection. Next, the cystic artery was cauterized. Electro-Bovie cautery was used to remove the gallbladder from the hepatic fossa. Hemostasis was checked and found to be adequate. The robot was undocked. I re-scrubbed into the case. Using a 10 mm Endo Catch bag via the left upper quadrant incision, the specimen was removed from the abdominal cavity. All pneumoperitoneum instruments were evacuated from the abdominal cavity. The incisions were reapproximated using 4-0 Monocryl in an interrupted subcuticular fashion. Fascial defect was less than 8 mm in size. Please note along the trocar sites, local anesthetic was placed as a field block prior to insertion of all instruments. Dermabond was applied to the skin. At the end of the procedure needle, sponge, and instrument count had been verified correct by the medical surgical tech. The patient was transferred to postanesthesia care unit in stable condition. Intraoperative films were shared with the patient's family who were very pleased with the level of care. Console time 6 minutes
[2017-10-20] MEDS: SODIUM CHLORIDE 0.9% 1,000 ML IV SCH (07:50)
[2017-10-20 08:31] VITALS: BP 109/73; PULSE 79; RESP 20; TEMP 97.6
[2017-10-20] MEDS: CHOLESTYRAMINE (WITH SUGAR) 4 GM PACKET PO SCH ×2 (08:47→12:48)
[2017-10-20] MEDS: DIPHENOX-ATROP 2.5-0.025 MG 1 EACH TAB PO SCH ×2 (08:47→12:48)
[2017-10-20] MEDS: ASPIRIN 81 MG PO SCH (08:47)
[2017-10-20] MEDS: PANTOPRAZOLE 40 MG/10 ML VIAL IVP SCH (08:47)
[2017-10-20] MEDS: HEPARIN SODIUM,PORCINE 5,000 UNIT/ML 1 ML VIAL SQ SCH (08:47)
--- NOTE | 2017-10-20 13:09 | P.PN ---
Subjective Progress Note Date: 10/20/17 The patient is a pleasant 71-year-old female who came in with ischemic colitis including chronic abdominal pain and diarrhea. Multiple studies were performed including C. diff which is negative. Additional workup including ultrasound was consistent with hydronephrosis as well as symptomatic gallstones. Since her surgery, her diarrhea is resolved. She is tolerating diet. No reports of abdominal pain. Her symptoms have abated. Objective - Vital Signs Vital signs: Vital Signs Temp 97.6 F 10/20/17 07:00 Pulse 79 10/20/17 07:00 Resp 20 10/20/17 07:00 BP 109/73 10/20/17 07:00 Pulse Ox 93 L 10/20/17 07:00 Intake & Output 10/19/17 10/20/17 10/20/17 18:59 06:59 18:59 Intake Total 1900 740 360 Output Total 5 Balance 1895 740 360 Intake: IV 1900 150 0.9% NaCl with KCl 40 Meq 600 /l 1,000 ml @ 75 mls/hr IV .[id number] ROBERTO Rx#: [id number] Oral 590 360 Output: Estimated Blood Loss 5 Other: Voiding Method Toilet Toilet # Voids 0 - Exam GENERAL: Well developed and in no acute distress. Pleasant. HEENT: No sclera icterus. Extraocular movements grossly intact. Moist buccal mucosa. Head is atraumatic, normocephalic. Hears conversational speech. No nasal drainage. NECK: Supple without lymphadenopathy. No JV distention. CHEST: Non-labored respirations and equal bilateral excursions. CARDIOVASCULAR: Regular rate and rhythm. Palpable 2+ radial pulses. ABDOMEN: Soft, nontender. Nondistended. Incisions are clean dry and intact. MUSCULOSKELETAL: No clubbing, cyanosis or edema. NEUROLOGIC: No focal or lateralizing signs. PSYCH: Appropriate affect. Alert and oriented to person, place and time. SKIN: Good skin turgor. Well perfused. - Labs CBC & Chem 7: 10/17/17 08:58 10/19/17 08:10 Labs: Microbiology - Last 24 Hours (Table) 10/17/17 09:13 Stool Culture - Final Stool Assessment and Plan (1) Ischemic colitis, enteritis, or enterocolitis Current Visit: Yes Status: Acute Code(s): K55.9 - VASCULAR DISORDER OF INTESTINE, UNSPECIFIED SNOMED Code(s): 18906102 (2) Weakness Current Visit: Yes Status: Acute Code(s): R53.1 - WEAKNESS SNOMED Code(s) : 81750509 (3) Dehydration syndrome Current Visit: Yes Status: Acute Code(s): E86.0 - DEHYDRATION SNOMED Code( s): 37117647 (4) Chronic diarrhea Current Visit: Yes Status: Acute Code(s): K52.9 - NONINFECTIVE GASTROENTERITIS AND COLITIS, UNSPECIFIED SNOMED Code(s): 803903041 (5) Abdominal pain Current Visit: Yes Status: Acute Code(s): R10.9 - UNSPECIFIED ABDOMINAL PAIN SNOMED Code(s): 11577259 (6) Gallstones Current Visit: Yes Status: Acute Code(s): K80.20 - CALCULUS OF GALLBLADDER W /O CHOLECYSTITIS W/O OBSTRUCTION SNOMED Code(s): 881368556 (7) Chronic cholecystitis Current Visit: Yes Status: Acute Code(s): K81.1 - CHRONIC CHOLECYSTITIS SNOMED Code(s): 32214817 (8) History of myocardial infarction Current Visit: Yes Status: Acute Code(s): I25.2 - OLD MYOCARDIAL INFARCTION SNOMED Code(s): 747380395 (9) Hydronephrosis Current Visit: Yes Status: Acute Code(s): N13.30 - UNSPECIFIED HYDRONEPHROSIS SNOMED Code(s): 59751559 Plan: 1. Clinically she is doing extremely well. 2. She is tolerating diet without diarrhea. 3. May be discharged home. 4. Tylenol as needed for pain.
--- NOTE | 2017-10-22 11:17 | P.DS ---
Providers Date of admission: 10/16/17 18:11 Expected date of discharge: 10/20/17 Attending physician: Eufemia Salazar Consults: 10/17/17 18:58 Consult Physician Routine Consulting Provider: Oliver Crowell Consult Reason/Comments: Right hydronephrosis, kidney stones Do you want consulting provider notified?: Yes 10/18/17 11:36 Consult Physician Stat Consulting Provider: Braden Sen Consult Reason/Comments: Cardiac clearance for scheduled surgery tomorrow lap cholecystectomy Do you want consulting provider notified?: Yes Primary care physician: Stated None - Discharge Diagnosis(es) (1) Ischemic colitis, enteritis, or enterocolitis Status: Acute (2) Weakness Status: Acute (3) Dehydration syndrome Status: Acute (4) Chronic diarrhea Status: Acute (5) Abdominal pain Status: Acute (6) Gallstones Status: Acute (7) Chronic cholecystitis Status: Acute (8) History of myocardial infarction Status: Acute (9) Hydronephrosis Status: Acute Hospital Course: POSTOPERATIVE DIAGNOSES: 1. Symptomatic gallstone 2. History of ischemic colitis 3. Chronic diarrhea 4. Kidney stones with hydronephrosis, right side 5. Right upper quadrant abdominal pain. 6. Past history of myocardial infarction COURSE: The patient is a 71-year-old female who was admitted secondary to pathology of ischemic colitis. She reported chronic diarrhea including diffuse abdominal pain. She presented to the office extreme dehydration as well. Additional studies including a stool test was negative for C. difficile. Separately, ultrasound and HIDA scan of the gallbladder was performed for epigastric and right upper quadrant abdominal pain. Findings were consistent with gallstones. Additional finding of right hydronephrosis was found and consultation to urology was performed. Cardiology consultation was performed for pre-surgical assessment. Postprocedure the patient's abdominal pain resolved. She was tolerating diet. Her diarrhea had resolved. Pertinent Studies: Ultrasound and HIDA demonstrating gallstones and right hydronephrosis Procedures: OPERATION: Robotic-assisted da Katarzyna Xi laparoscopic cholecystectomy, multiport without FIREFLY ESTIMATED BLOOD LOSS: 5 mL. SPECIMENS REMOVED: Gallbladder. COMPLICATIONS: None. OPERATIVE FINDINGS: 1. Chronic cholecystitis with multiple gallstone. Patient Condition at Discharge: Stable Plan - Discharge Summary Discharge Rx Participant: Yes New Discharge Prescriptions: New Cholestyramine (with Sugar) [Questran Packet] 4 gm PO ACHS PRN #20 packet PRN Reason: Diarrhea Diphenox-Atrop 2.5-0.025 mg [Lomotil] 1 each PO QID PRN #30 tab PRN Reason: Diarrhea Continue Ubidecarenone [Co Q-10] 100 mg PO DAILY Potassium 99 mg PO DAILY Calcium Carbonate [Calcium] 600 mg PO DAILY Biotin 5 mg PO DAILY Cholecalciferol (Vitamin D3) [Vitamin D3] 10,000 unit PO DAILY Aspirin [Adult Low Dose Aspirin EC] 81 mg PO DAILY Discontinued metroNIDAZOLE [Flagyl] 500 mg PO BID Ciprofloxacin HCl [Cipro] 500 mg PO BID Discharge Medication List Aspirin [Adult Low Dose Aspirin EC] 81 mg PO DAILY 10/16/17 [History] Biotin 5 mg PO DAILY 10/16/17 [History] Calcium Carbonate [Calcium] 600 mg PO DAILY 10/16/17 [History] Cholecalciferol (Vitamin D3) [Vitamin D3] 10,000 unit PO DAILY 10/16/17 [History ] Potassium 99 mg PO DAILY 10/16/17 [History] Ubidecarenone [Co Q-10] 100 mg PO DAILY 10/16/17 [History] Cholestyramine (with Sugar) [Questran Packet] 4 gm PO ACHS PRN #20 packet [Rx] Diphenox-Atrop 2.5-0.025 mg [Lomotil] 1 each PO QID PRN #30 tab 10/20/17 [Rx] Follow up Appointment(s)/Referral(s): Eufemia Salazar MD [STAFF PHYSICIAN] - 10/23/17 (Call for time) Justino Ashraf MD [STAFF PHYSICIAN] - 1 Week Patient Instructions/Handouts: Laparoscopic Cholecystectomy (DC) Activity/Diet/Wound Care/Special Instructions: May shower. No bath tub soaks. Take antidiarrheal medication as needed. No lifting over 4 pounds in 4 weeks. Discharge Disposition: HOME SELF-CARE
== END 2017-10-20 15:07 | disposition home or self-care (01) | DRG 418 ==
LOC: 3SUR 18:11
PROVIDERS: ADMIT Surgery Plastic and Reconstructive Surgery; ATTEND Surgery Plastic and Reconstructive Surgery
PROC: 8E0W4CZ Robotic Assisted Procedure of Trunk Region, Percutaneous Endoscopic Approach (ICD-10-PCS; 2017-10-19)
PROC: 0FT44ZZ Resection of Gallbladder, Percutaneous Endoscopic Approach (ICD-10-PCS; principal; 2017-10-19 18:45)
DX: K80.10 Calculus of gallbladder with chronic cholecystitis without obstruction (principal); K55.9 Vascular disorder of intestine, unspecified; N13.2 Hydronephrosis with renal and ureteral calculous obstruction; E03.9 Hypothyroidism, unspecified; E86.0 Dehydration; E87.6 Hypokalemia; G89.29 Other chronic pain; I25.10 Atherosclerotic heart disease of native coronary artery without angina pectoris; I25.2 Old myocardial infarction; K52.9 Noninfective gastroenteritis and colitis, unspecified; R63.4 Abnormal weight loss; Z68.21 Body mass index [BMI] 21.0-21.9, adult; Z79.82 Long term (current) use of aspirin; Z79.899 Other long term (current) drug therapy; Z90.710 Acquired absence of both cervix and uterus; Z87.891 Personal history of nicotine dependence; Z87.442 Personal history of urinary calculi; Z87.440 Personal history of urinary (tract) infections; Z88.0 Allergy status to penicillin; Z82.49 Family history of ischemic heart disease and other diseases of the circulatory system; Z80.3 Family history of malignant neoplasm of breast
CPT/HCPCS: 74018; 76705; 78227; 80048; 80053; 81001; 82150; 82272; 83605; 83690; 83735; 84100; 85025; 87045; 87046; 87324; 87328; 87329; 88304; 89055; 93005; 93306

== ENCOUNTER → 2017-11-06 | Outpatient (CLI) | payer MEDICARE, BC ==
--- NOTE | 2017-11-06 16:06 | CT ---
EXAMINATION TYPE: CT abdomen pelvis wo con DATE OF EXAM: 11/06/2017 HISTORY: Calculus of kidney CT DLP: 676 mGycm. Automated Exposure Control for Dose Reduction was Utilized. TECHNIQUE: CT scan of the abdomen and pelvis is performed without oral or IV contrast. COMPARISON: CT abdomen pelvis February 27, 2014. Abdominal x-ray October 16, 2017 FINDINGS: Within the limitations of a non-contrast study, the following observations are made. LUNG BASES: Some scattered bibasilar scarring is present. There is persistent mild cardiomegaly LIVER/GB: There is new hyperdensity and contracted gallbladder consistent with small stones or gallbl adder sludge axial image 37. PANCREAS: No significant abnormality is seen. SPLEEN: No significant abnormality is seen. ADRENALS: No significant abnormality is seen. KIDNEYS: Right-sided nephrolithiasis is present with 2 calculi seen best coronal image 49 accounting for x-ray abnormality. Lower pole calculus measures 9 mm long axis axial image 44. There are 2 right mid renal calculi, largest anteriorly measures 16 cm long axis axial image 31. There is marked cortic al thinning with severe pyelocaliectasis. No distinct hydroureter is identified. There is single 2 mm calculus upper pole level left kidney coronal image 51. There is cortical thinni ng anteriorly lower pole level left kidney. No hydronephrosis or obstructing left-sided renal calculi are seen. No intraluminal calculi and bladder is identified. BOWEL: Small size hiatal hernia is less prominent than prior. No suspicious small or large bowel dila tation is seen. Normal-appearing appendix is seen from cecum. There are diverticula scattered through out the colon most prominent in the sigmoid colon. There is no CT evidence for acute diverticulitis. GENITAL ORGANS: Uterus is surgically absent or markedly atrophic in appearance LYMPH NODES: No greater than 1cm abdominal or pelvic lymph nodes are appreciated. OSSEOUS STRUCTURES: Underlying levoconvex scoliosis is redemonstrated. Osseous structures are deminer alized. There is moderate to severe axial joint space loss in both hips with mild to moderate right-s ided spurring. There is transitional-type vertebra at lumbosacral junction redemonstrated. OTHER: No significant additional abnormality is seen. IMPRESSION: Accounting for x-ray abnormality is new right-sided nephrolithiasis. There is new severe pyelocaliectasis and marked cortical thinning in the right kidney. Asymmetric atrophy to right kidney is now present. No obstructing calculus is clearly seen. Incidental note is made of small gallstones and/or gallbladder sludge also present on current study.
== END | disposition home or self-care (01) ==
LOC: RADCTMAIN 15:30
PROVIDERS: ATTEND Urology
DX: N20.0 Calculus of kidney (principal); N13.30 Unspecified hydronephrosis; N26.1 Atrophy of kidney (terminal); K80.20 Calculus of gallbladder without cholecystitis without obstruction
CPT/HCPCS: 74176

== ENCOUNTER → 2017-11-16 | Outpatient (CLI) | payer MEDICARE, BC ==
--- NOTE | 2017-11-16 14:26 | CT ---
EXAMINATION TYPE: CT urogram wo/w con DATE OF EXAM: 11/16/2017 HISTORY: Renal calculus discovered during cholecystectomy CT DLP: 525.7mGycm Automated Exposure Control for Dose Reduction was Utilized. CONTRAST: CT scan of the abdomen and pelvis is performed without oral and with IV Contrast, patient injected wi th 80 mL of Isovue 300. Urogram protocol with Three-D reconstructed images created on independent [employer] kstation and reviewed. Noncontrast images not performed due to recent noncontrast CT performed November 06, 2017. COMPARISON: CT abdomen pelvis November 06, 2017. FINDINGS: KUB: There is persistent 3 mm calculus upper pole level left kidney axial image 15 series 3. There are persistent several large calculi in the right kidney have changed position are now in lower pole collecting system, identify roughly 4 lesions measuring up to 13 mm in size seen best coronal i mage 68 series 6. Multiple small rounded densities series 6 images 48 through 51 likely reflects smal l stones in contracted gallbladder which correlates with prior CT. There is symmetric cortical medull alvin uptake and excretion from both kidneys. There is persistent severe right-sided pyelocaliectasis p articularly mid to lower pole modalities. Upper pole shows less prominent dilatation suggesting possi ble duplication. There is suboptimal opacification of the right ureter to assess. Visualized left ure ter shows no suspicious dilatation or obstructing stone. LUNG BASES: Dependent atelectasis is present bilaterally. There is persistent mild cardiomegaly. LIVER/GB: No significant abnormality is appreciated. PANCREAS: No significant abnormality is seen. SPLEEN: No significant abnormality is seen. ADRENALS: No significant abnormality is seen. BOWEL: Evaluation bowel is suboptimal secondary to lack of enteric contrast. There are diverticula in the colon most prominent in the sigmoid colon. There is no CT evidence for acute diverticulitis. The re is no suspicious small or large bowel dilatation. UTERUS/ADNEXA: No gross abnormality seen. LYMPH NODES: No greater than 1cm abdominal or pelvic lymph nodes are appreciated. OSSEOUS STRUCTURES: There is disc space narrowing lumbosacral junction. There is vacuum disc phenomen on L4-L5 level. There is moderate to severe joint space loss in both hips. There is multilevel facet arthropathy mid to lower lumbar spine. OTHER: No significant additional abnormality is seen. IMPRESSION: Suboptimal study with nonopacified right ureter. Multiple right-sided renal calculi are r edemonstrated. There is persistent moderate to severe right-sided hydronephrosis mid to lower pole le beau without hydroureter and without delayed excretion but nonvisualization of ureter. Possible partia lly duplicated collecting system as there is less dilatation of upper pole noted. Advise direct ruddy ter urogram to further assess.
== END | disposition home or self-care (01) ==
LOC: RADCTMAIN 12:38
PROVIDERS: ATTEND Urology
DX: N13.30 Unspecified hydronephrosis (principal); N28.1 Cyst of kidney, acquired; Z88.0 Allergy status to penicillin
CPT/HCPCS: 82565; 84520; 74178; 36415; 74400; Q9967

== ENCOUNTER 2017-12-28 13:41 | Inpatient (IN) | payer MEDICARE, BC ==
[2017-12-28] MEDS ORDERED: FAMOTIDINE 20 MG/2 ML VIAL IV STA (14:45)
[2017-12-28] MEDS ORDERED: ONDANSETRON 4 MG/2 ML VIAL IVP STA (14:45)
[2017-12-28] MEDS ORDERED: SODIUM CHLORIDE 0.9% 1,000 ML IV STA ×2 (14:45→16:44)
--- NOTE | 2017-12-28 15:12 | ED ---
General Adult HPI - General Source: patient, RN notes reviewed Mode of arrival: wheelchair Limitations: physical limitation <Florencio Umanzor - Last Filed: 12/28/17 18:28> <John Ross - Last Filed: 12/28/17 18:36> - General Chief complaint: Nausea/Vomiting/Diarrhea Stated complaint: Vomiting Time Seen by Provider: 12/28/17 14:31 - History of Present Illness Initial comments: Patient 72-year-old female presents to the emergency room today with a chief complaint of diarrhea off-and-on over the last several months. Patient does admit that she had a cholecystectomy back in October 2017. States that since that time she's been having diarrhea. She does admit that she's follow-up the family doctor for this. She states that today began having some symptoms of nausea and vomiting. States that has abdominal cramping that comes and goes. She denies any other complaints or symptoms. Patient denies any recent fever, chills, shortness of breath, chest pain, back pain, numbness or tingling, dysuria or hematuria, constipation, headaches or visual changes, or any other complaints. (Florencio Umanzor) - Related Data Home Medications Medication Instructions Recorded Confirmed Aspirin [Adult Low Dose Aspirin EC] 81 mg PO DAILY 10/16/17 12/28/17 Biotin 5 mg PO DAILY 10/16/17 12/28/17 Calcium Carbonate [Calcium] 600 mg PO DAILY 10/16/17 12/28/17 Cholecalciferol (Vitamin D3) 10,000 unit PO DAILY 10/16/17 12/28/17 [Vitamin D3] Potassium 99 mg PO DAILY 10/16/17 12/28/17 Ubidecarenone [Co Q-10] 100 mg PO DAILY 10/16/17 12/28/17 Acetaminophen Tab [Tylenol Tab] 325 mg PO Q4H PRN 12/28/17 12/28/17 Diphenox-Atrop 2.5-0.025 mg 1 tab PO QID PRN 12/28/17 12/28/17 [Lomotil] Previous Rx's Medication Instructions Recorded Cholestyramine (with Sugar) 4 gm PO ACHS PRN #20 packet 10/20/17 [Questran Packet] Allergies Allergy/AdvReac Type Severity Reaction Status Date / Time cefepime Allergy Unknown Verified 12/28/17 14:42 Latex, Natural Rubber Allergy Rash/Hives Verified 12/28/17 14:42 Penicillins Allergy Unknown Verified 12/28/17 14:42 Childhood soap Allergy Swelling Verified 12/28/17 14:42 Review of Systems ROS Other: All systems not noted in ROS Statement are negative. <Florencio Umanzor - Last Filed: 12/28/17 18:28> ROS Other: All systems not noted in ROS Statement are negative. <John Ross - Last Filed: 12/28/17 18:36> ROS Statement: Those systems with pertinent positive or pertinent negative responses have been documented in the HPI. Past Medical History Past Medical History: Myocardial Infarction ([place]) Additional Past Medical History / Comment(s): KIDNEY STONE Last Myocardial Infarction Date:: 2014 History of Any Multi-Drug Resistant Organisms: None Reported Past Surgical History: Cholecystectomy, Hysterectomy Additional Past Surgical History / Comment(s): Left ureteroscopy with lithotripsy 03/06/2014 and extracorporeal shockwave lithotripsy of right renal calculus 04/14/2014 Past Psychological History: No Psychological Hx Reported Smoking Status: Former smoker Past Alcohol Use History: None Reported Past Drug Use History: None Reported - Past Family History Mother Family Medical History: Cancer Additional Family Medical History / Comment(s): Breast Cancer Sister(s) Family Medical History: Cancer Additional Family Medical History / Comment(s): Breast Cancer <Florencio Umanzor - Last Filed: 12/28/17 18:28> General Exam Limitations: physical limitation <Florencio Umanzor - Last Filed: 12/28/17 18:28> <John Ross - Last Filed: 12/28/17 18:36> - General Exam Comments Initial Comments: General: The patient is awake and alert, in no distress, and does not appear acutely ill. Eye: Pupils are equal, round and reactive to light, extra-ocular movements are intact. No nystagmus. There is normal conjunctiva bilaterally. No signs of icterus. Ears, nose, mouth and throat: There are moist mucous membranes and no oral lesions. Neck: The neck is supple, there is no tenderness or JVD. Cardiovascular: There is a regular rate and rhythm. No murmur, rub or gallop is appreciated. Respiratory: Lungs are clear to auscultation, respirations are non-labored, breath sounds are equal. No wheezes, stridor, rales, or rhonchi. Gastrointestinal: Soft, non-distended, non-tender abdomen without masses or organomegaly noted. There is no rebound or guarding present. No CVA tenderness. Musculoskeletal: Normal ROM, no tenderness. Strength 5/5. Sensation intact. Pulses equal bilaterally 2+. Neurological: A&O x 3. CN II-XII intact, There are no obvious motor or sensory deficits. Coordination appears grossly intact. Speech is normal. Skin: Skin is warm and dry and no rashes or lesions are noted. Psychiatric: Cooperative, appropriate mood & affect, normal judgment. (Florencio Umanzor) Vital Signs 12/28/17 12/28/17 12/28/17 14:05 18:06 18:33 Temperature 98.4 F Pulse Rate 102 H 80 83 Respiratory 18 18 18 Rate Blood Pressure 95/66 85/50 93/54 O2 Sat by Pulse 96 95 97 Oximetry Medical Decision Making - Lab Data Result diagrams: 12/28/17 15:05 12/28/17 15:05 <Florencio Umanzor - Last Filed: 12/28/17 18:28> - Lab Data Result diagrams: 12/28/17 15:05 12/28/17 15:05 <John Ross - Last Filed: 12/28/17 18:36> - Medical Decision Making Patient's CT of the abdomen and pelvis does reveal evidence for a colitis. Patient unable to provide stool sample at this time. Patient's kidney function mildly elevated here in the emergency room. Patient was given CT with contrast. Given bolus afterwards. She will be admitted to continue to be hydrated with IV fluids and check kidney status awaiting stool studies. (Florencio Umanzor) Patient reevaluated by myself, Dr. Ross. Patient resting comfortably in bed. Abdomen soft and nontender. Chart and results reviewed. Case discussed in detail with Dr. isidro, who will admit for Dr. Whlaey. Patient will need fluid hydration and recheck of renal function in the morning. (John Ross) - Lab Data Lab Results 12/28/17 12/28/17 12/28/17 Range/Units 15:05 15:05 15:05 WBC 12.2 H (3.8-10.6) k/uL RBC 5.31 (3.80-5.40) m/uL Hgb 15.6 (11.4-16.0) gm/dL Hct 47.9 H (34.0-46.0) % MCV 90.2 (80.0-100.0) fL MCH 29.3 (25.0-35.0) pg MCHC 32.5 (31.0-37.0) g/dL RDW 13.2 (11.5-15.5) % Plt Count 423 (150-450) k/uL Neutrophils % 69 % Lymphocytes % 21 % Monocytes % 6 % Eosinophils % 1 % Basophils % 1 % Neutrophils # 8.4 H (1.3-7.7) k/uL Lymphocytes # 2.5 (1.0-4.8) k/uL Monocytes # 0.7 (0-1.0) k/uL Eosinophils # 0.1 (0-0.7) k/uL Basophils # 0.1 (0-0.2) k/uL PT 10.0 (9.0-12.0) sec INR 1.0 (<1.2) APTT 24.1 (22.0-30.0) sec Sodium 139 (137-145) mmol/L Potassium 4.0 (3.5-5.1) mmol/L Chloride 98 (98-107) mmol/L Carbon Dioxide 26 (22-30) mmol/L Anion Gap 15 mmol/L BUN 40 H (7-17) mg/dL Creatinine 1.67 H (0.52-1.04) mg/dL Est GFR (CKD-EPI)AfAm 35 (>60 ml/min/1.73 sqM) Est GFR (CKD-EPI)NonAf 30 (>60 ml/min/1.73 sqM) Glucose 117 H (74-99) mg/dL Calcium 9.9 (8.4-10.2) mg/dL Total Bilirubin 0.6 (0.2-1.3) mg/dL AST 23 (14-36) U/L ALT 23 (9-52) U/L Alkaline Phosphatase 88 (38-126) U/L Total Protein 7.0 (6.3-8.2) g/dL Albumin 3.9 (3.5-5.0) g/dL Amylase 51 (30-110) U/L Lipase 30 (23-300) U/L TSH (0.465-4.680) mIU/L Urine Color Urine Appearance (Clear) Urine pH (5.0-8.0) Ur Specific [place] (1.001-1.035) Urine Protein (Negative) Urine Glucose (UA) (Negative) Urine Ketones (Negative) Urine Blood (Negative) Urine Nitrite (Negative) Urine Bilirubin (Negative) Urine Urobilinogen (<2.0) mg/dL Ur Leukocyte Esterase (Negative) Urine RBC (0-5) /hpf Urine WBC (0-5) /hpf Ur Squamous Epith Cells (0-4) /hpf Urine Bacteria (None) /hpf Hyaline Casts (0-2) /lpf Urine Mucus (None) /hpf 12/28/17 12/28/17 Range/Units 15:50 17:18 WBC (3.8-10.6) k/uL RBC (3.80-5.40) m/uL Hgb (11.4-16.0) gm/dL Hct (34.0-46.0) % MCV (80.0-100.0) fL MCH (25.0-35.0) pg MCHC (31.0-37.0) g/dL RDW (11.5-15.5) % Plt Count (150-450) k/uL Neutrophils % % Lymphocytes % % Monocytes % % Eosinophils % % Basophils % % Neutrophils # (1.3-7.7) k/uL Lymphocytes # (1.0-4.8) k/uL Monocytes # (0-1.0) k/uL Eosinophils # (0-0.7) k/uL Basophils # (0-0.2) k/uL PT (9.0-12.0) sec INR (<1.2) APTT (22.0-30.0) sec Sodium (137-145) mmol/L Potassium (3.5-5.1) mmol/L Chloride (98-107) mmol/L Carbon Dioxide (22-30) mmol/L Anion Gap mmol/L BUN (7-17) mg/dL Creatinine (0.52-1.04) mg/dL Est GFR (CKD-EPI)AfAm (>60 ml/min/1.73 sqM) Est GFR (CKD-EPI)NonAf (>60 ml/min/1.73 sqM) Glucose (74-99) mg/dL Calcium (8.4-10.2) mg/dL Total Bilirubin (0.2-1.3) mg/dL AST (14-36) U/L ALT (9-52) U/L Alkaline Phosphatase (38-126) U/L Total Protein (6.3-8.2) g/dL Albumin (3.5-5.0) g/dL Amylase (30-110) U/L Lipase (23-300) U/L TSH 2.620 (0.465-4.680) mIU/L Urine Color Yellow Urine Appearance Clear (Clear) Urine pH 6.0 (5.0-8.0) Ur Specific [place] >1.050 H (1.001-1.035) Urine Protein 1+ H (Negative) Urine Glucose (UA) Negative (Negative) Urine Ketones Trace H (Negative) Urine Blood Negative (Negative) Urine Nitrite Negative (Negative) Urine Bilirubin Negative (Negative) Urine Urobilinogen <2.0 (<2.0) mg/dL Ur Leukocyte Esterase Large H (Negative) Urine RBC 8 H (0-5) /hpf Urine WBC 39 H (0-5) /hpf Ur Squamous Epith Cells 2 (0-4) /hpf Urine Bacteria Rare H (None) /hpf Hyaline Casts 4 H (0-2) /lpf Urine Mucus Rare H (None) /hpf Disposition Is patient prescribed a controlled substance at d/c from ED?: No Time of Disposition: 18:09 <Florencio Umanzor - Last Filed: 12/28/17 18:28> <John Ross - Last Filed: 12/28/17 18:36> Clinical Impression: Colitis, ANDRES (acute kidney injury) Disposition: ADMITTED IP TO THIS HOSP Condition: Stable Referrals: Alisia Jennings MD [Primary Care Provider] - 1-2 days
[2017-12-28 15:21] LABS: Basophils # (A) 0.1 k/uL (0-0.2); Basophils % (A) 1 %; Eosinophils # (A) 0.1 k/uL (0-0.7); Eosinophils % (A) 1 %; HCT 47.9 % (34.0-46.0); HGB 15.6 gm/dL (11.4-16.0); Lymphocytes # (A) 2.5 k/uL (1.0-4.8); Lymphocytes % (A) 21 %; MCH 29.3 pg (25.0-35.0); MCHC 32.5 g/dL (31.0-37.0); MCV 90.2 fL (80.0-100.0); Mean Platelet Volume 7.4; Monocytes # (A) 0.7 k/uL (0-1.0); Monocytes % (A) 6 %; Neutrophils # (A) 8.4 k/uL (1.3-7.7); Neutrophils % (A) 69 %; Platelet Count 423 k/uL (150-450); RBC 5.31 m/uL (3.80-5.40); RDW 13.2 % (11.5-15.5); WBC 12.2 k/uL (3.8-10.6)
[2017-12-28 15:29] LABS: Partial Thromboplastin Time 24.1 sec (22.0-30.0)
[2017-12-28 15:33] LABS: Albumin 3.9 g/dL (3.5-5.0); Calcium 9.9 mg/dL (8.4-10.2); Total Bilirubin 0.6 mg/dL (0.2-1.3)
--- NOTE | 2017-12-28 16:56 | CT ---
EXAMINATION TYPE: CT abdomen pelvis w con DATE OF EXAM: 12/28/2017 COMPARISON: Prior CT 11/16/2017, 11/06/2017 HISTORY: DIARRHEA/VOMTING CT DLP: 314 mGycm Automated exposure control for dose reduction was used. TECHNIQUE: Helical acquisition of images from the lung bases through the pelvis have been completed. CONTRAST: Performed without Oral Contrast and with IV Contrast, patient injected with 100 mL of Isovue 300. FINDINGS: LUNG BASES: Stable, there are some emphysematous changes, basilar atelectatic change or scar similar to prior exam AORTA: No significant abnormality is appreciated. LIVER/GB: The liver is enlarged and shows low attenuation compatible with hepatic steatosis. Patient is post cholecystectomy. Some colonic interposition noted anterior to the enlarged right lobe PANCREAS: No significant abnormality is seen. SPLEEN: No significant abnormality is seen. ADRENALS: No significant abnormality is seen. KIDNEYS: Right kidney shows some atrophic changes with associated calcification similar to prior, the calcification seen on prior at the upper pole the left kidney but stable. REPRODUCTIVE ORGANS: Not seen BOWEL: There are fluid-filled loops of bowel present with some bowel wall enhancement and possible t hickening thought to be more limited due to the colon, some diverticular change noted in the sigmoid. Appendix not to be normal. FREE AIR: No Free Air visible. ASCITES: None visible. PELVIC ADENOPATHY: None visualized. RETROPERITONEAL ADENOPATHY: No Retroperitoneal Adenopathy visible. URINARY BLADDER: No significant abnormality is seen. OSSEOUS STRUCTURES: Arthropathy noted in the right.. Facet arthropathy noted in the lower lumbar spi ne with degenerative disc change. IMPRESSION: CORRELATE FOR POSSIBLE COLITIS. ADDITIONAL FINDINGS ABOVE.
[2017-12-28 17:30] LABS: Appearance,Urine Clear (Clear); Bacteria,Urine Rare /hpf; Bilirubin,Urine Negative (Negative); Blood,Urine Negative (Negative); Color,Urine Yellow; Glucose,Urine (UA) Negative (Negative); Hyaline Casts,Urine 4 /lpf (0-2); Ketones,Urine Trace (Negative); Leukocyte Esterase,Urine Large (Negative); Mucus,Urine Rare /hpf; Nitrite,Urine Negative (Negative); Protein,Urine 1+ (Negative); RBC,Urine 8 /hpf (0-5); Squamous Epithelial Cell,Urine 2 /hpf (0-4); Urobilinogen,Urine <2.0 mg/dL (<2.0); WBC,Urine 39 /hpf (0-5)
[2017-12-28 17:42] LABS: Specific Gravity,Urine >1.050 (1.001-1.035)
[2017-12-28] MEDS ORDERED: NALOXONE 0.4 MG/ML 1 ML VIAL IV PRN (18:25)
[2017-12-28] MEDS ORDERED: ACETAMINOPHEN TAB 325 MG TAB PO PRN (18:25)
[2017-12-28] MEDS ORDERED: LORazepam 2 MG/ML INJ IV PRN (18:25)
[2017-12-28] MEDS ORDERED: TEMAZEPAM 15 MG CAP PO PRN (18:25)
[2017-12-28] MEDS ORDERED: SODIUM CHLORIDE 0.9% 1,000 ML IV ONE (18:25)
[2017-12-28 22:57] VITALS: BMI 20.6
[2017-12-29 08:31] LABS: Basophils # (A) 0.1 k/uL (0-0.2); Basophils % (A) 1 %; Eosinophils # (A) 0.8 k/uL (0-0.7); Eosinophils % (A) 10 %; HCT 36.4 % (34.0-46.0); Lymphocytes # (A) 2.4 k/uL (1.0-4.8); Lymphocytes % (A) 27 %; MCH 29.6 pg (25.0-35.0); MCHC 32.3 g/dL (31.0-37.0); MCV 91.7 fL (80.0-100.0); Mean Platelet Volume 8.3; Monocytes # (A) 0.7 k/uL (0-1.0); Monocytes % (A) 8 %; Neutrophils # (A) 4.4 k/uL (1.3-7.7); Neutrophils % (A) 51 %; Platelet Count 296 k/uL (150-450); RBC 3.97 m/uL (3.80-5.40); RDW 13.5 % (11.5-15.5); WBC 8.6 k/uL (3.8-10.6)
[2017-12-29 08:34] LABS: HGB 11.8 gm/dL (11.4-16.0)
[2017-12-29 09:39] LABS: Albumin 2.3 g/dL (3.5-5.0); Calcium 8.3 mg/dL (8.4-10.2); Potassium 3.6 mmol/L (3.5-5.1); Total Bilirubin 0.4 mg/dL (0.2-1.3); Total Protein 4.7 g/dL (6.3-8.2)
[2017-12-29] MEDS ORDERED: ACETAMINOPHEN TAB 325 MG TAB PO PRN (16:20)
[2017-12-29] MEDS: ASPIRIN 81 MG PO SCH (16:47)
--- NOTE | 2017-12-29 17:23 | HP ---
HISTORY AND PHYSICAL DATE OF ADMISSION: December 29, 2017. PRESENTING COMPLAINT: Diarrhea. HISTORY OF PRESENTING COMPLAINT: This is a very pleasant 72-year-old patient of Dr. Alisia Jennings. Chronic stable medical conditions include essential hypertension, coronary artery disease, and urinary incontinence. The patient did have a heart attack 3 years ago, but no intervention was done. The patient for about a year now has been having 3 or 4 bowel movements a day. Describes as watery diarrhea and typically happens after eating food. She has noticed this more so after cholecystectomy. Her surgeon is Dr. Salazar. The patient did try Imodium, but not with much help and the patient is getting trouble with the same. Denies any fever and chills. No abdominal pain. Appetite is fair. There is no weight loss. Admitted for the same. REVIEW OF SYSTEMS: CONSTITUTIONAL: Tired. HEENT none. RESPIRATORY none. CARDIOVASCULAR none. GASTROINTESTINAL: As above. GENITOURINARY: None. MUSCULOSKELETAL none. DERMATOLOGICAL. None. HEMATOLOGICAL: None. LYMPHATICS: None. PSYCHIATRY none. NEUROLOGICAL none. PAST MEDICAL HISTORY: Coronary artery disease, [place] 3 years ago and hypertension. PAST SURGICAL HISTORY: Cholecystectomy, hysterectomy and left ureteroscopy with lithotripsy and extracorporeal shock wave lithotripsy of the right renal calculus. SOCIAL HISTORY: Does not smoke or drink alcohol. Lives by herself. FAMILY HISTORY: Breast cancer. HOME MEDICATIONS: 1. CO Q10 100 mg p.o. daily. 2. Potassium 99 mg p.o. daily. 3. Lomotil 1 tab q.i.d. p.r.n. 4. Questran 4 grams p.o. a.c. q.h.s. 5. Vitamin D3 15998 units p.o. daily. 6. Calcium 600 mg p.o. daily. 7. Biotin 500 mg p.o. daily. 8. Aspirin 81 mg p.o. daily. 9. Tylenol 325 p.o. q.4h p.r.n. ALLERGIES: TO CEFEPIME, LATEX, PENICILLIN, SOAP. PHYSICAL EXAMINATION: VITAL SIGNS: Temperature 97.6, pulse 85, respiratory rate 20, blood pressure 102/48, pulse ox 98% on room air. GENERAL APPEARANCE: Average build, lying in bed, awake, tired-appearing. EYES: Pupils equal. Conjunctivae normal. HEENT: External appearance of nose and ears normal. Oral cavity normal. NECK: JVD not raised. Mass not palpable. RESPIRATORY: Effort normal. Lungs are clear. CARDIOVASCULAR: 1st and 2nd sounds normal. No edema. ABDOMEN: Soft nontender. Liver and spleen not palpable. LYMPHATIC: No lymph nodes palpable in the neck and axillae. PSYCHIATRY: Alert and oriented x3. Mood and affect normal. NEUROLOGICAL: Pupils equal. Cranial nerves grossly intact. Power and sensation grossly intact. INVESTIGATIONS: White count 12.2, potassium 4.0, BUN 40, creatinine 1.67. UA positive for leuko esterase, WBC. ASSESSMENT: 1. Acute renal failure from chronic diarrhea and inadequate intake likely prerenal in nature. 2. Acute on chronic diarrhea. Diarrhea is rather watery. Minimal abdominal pain. Slight white count, no fever. 3. Coronary artery disease, prior history of myocardial infarction. PLAN: The patient is put on IV fluids for hydration. We will add Metamucil for bulk forming and we will put the patient on Questran scheduled. Care was discussed with the patient. Questions were answered. Copy to Dr. Jennings. MMROMELL / IJN: [id number] /
[2017-12-29] MEDS ORDERED: DIPHENOX-ATROP 2.5-0.025 MG 1 EACH TAB PO SCH (17:30)
[2017-12-29] MEDS: CHOLESTYRAMINE (WITH SUGAR) 4 GM PACKET PO SCH (21:23)
[2017-12-29] MEDS: PSYLLIUM HUSK 100% 6 GM PACKET PO SCH (21:40)
[2017-12-30] MEDS: PSYLLIUM HUSK 100% 6 GM PACKET PO SCH ×2 (07:50→20:41)
[2017-12-30] MEDS: ASPIRIN 81 MG PO SCH (07:50)
[2017-12-30] MEDS: CHOLESTYRAMINE (WITH SUGAR) 4 GM PACKET PO SCH ×2 (07:50→20:41)
[2017-12-30] MEDS ORDERED: DIPHENOX-ATROP 2.5-0.025 MG 1 EACH TAB PO SCH (18:00)
[2017-12-30] MEDS: CEPHALEXIN 250 MG CAP PO SCH ×2 (18:04→20:42)
[2017-12-30] MEDS: DIPHENOX-ATROP 2.5-0.025 MG 1 EACH TAB PO SCH ×2 (18:04→20:43)
--- NOTE | 2017-12-30 20:06 | PN ---
PROGRESS NOTE DATE OF SERVICE: 12/30/17. PRESENT COMPLAINT: Diarrhea. INTERVAL HISTORY: This patient presents with uncontrolled diarrhea recently. The patient was started on Metamucil yesterday. The patient is still having significant diarrhea, as soon as she eats something she has a bowel movement. That is gastrocolic effect. REVIEW OF SYSTEMS: Done for constitutional, cardiovascular, GI, pulmonary; relevant findings above. CURRENT MEDICATIONS: Reviewed that include Questran, Metamucil. PHYSICAL EXAMINATION: Temperature 97.6, pulse 84, respirations 16, blood pressure 106/51, pulse ox 95% on room air. GENERAL APPEARANCE: Sitting up, tired-appearing. EYES: Pupils equal. Conjunctivae normal.. HEENT: External nose and ears normal. Oral cavity normal. NECK: JVD not raised. Mass not palpable. RESPIRATORY: Effort normal. Lungs are clear. CARDIOVASCULAR: 1st and 2nd sounds, no edema. ABDOMEN: Soft, nontender. Liver and spleen not palpable. PSYCHIATRY: Alert and oriented x3. Mood and affect normal. INVESTIGATIONS: White count 8.6, hemoglobin 11.8, potassium 3.6, BUN 24, creatinine 0.98, albumin 2.3. C difficile negative. ASSESSMENT: 1. Acute renal failure from chronic diarrhea from inadequate intake, felt to be prerenal with clinical improvement. 2. Acute on chronic diarrhea, appears to be exacerbated gastrocolic reflex. 3. Coronary artery disease, prior history of myocardial infarction. PLAN: We will continue with the Metamucil, will add Lomotil 3 times a day. Continue with Questran. GI is consulted. Care was discussed with the patient. MMODL / IJN: [id number] /
[2017-12-31] MEDS: PSYLLIUM HUSK 100% 6 GM PACKET PO SCH ×2 (07:48→20:33)
[2017-12-31] MEDS: CHOLESTYRAMINE (WITH SUGAR) 4 GM PACKET PO SCH ×2 (07:48→20:34)
[2017-12-31] MEDS: ASPIRIN 81 MG PO SCH (07:48)
[2017-12-31] MEDS: DIPHENOX-ATROP 2.5-0.025 MG 1 EACH TAB PO SCH ×3 (07:49→20:34)
[2017-12-31] MEDS: CEPHALEXIN 250 MG CAP PO SCH ×4 (07:49→20:34)
[2017-12-31] MEDS ORDERED: ACETAMINOPHEN TAB 325 MG TAB PO PRN (07:59)
--- NOTE | 2017-12-31 12:58 | PN ---
PROGRESS NOTE ADDENDUM: DATE OF SERVICE: December 30, 2017. ASSESSMENT: Acute urinary tract infection. PLAN: Keflex 250 mg 4 times a day was added. MMODL / IJN: [id number] /
[2017-12-31] MEDS: ONDANSETRON 4 MG/2 ML VIAL IVP PRN (13:49)
[2017-12-31] MEDS: metroNIDAZOLE-NS PMX 500 MG in SALINE 1 100ML.BAG IVPB SCH ×2 (16:07→23:46)
--- NOTE | 2017-12-31 16:47 | P.PN ---
Subjective Progress Note Date: 12/31/17 Progress note being dictated for Dr. Cloud. Interval history: This a 72-year-old female admitted with acute renal failure, diarrhea, acute UTI and multiple other medical issues in a patient with history of ischemic colitis, dehydration syndrome, chronic diarrhea, right hydronephrosis. Diarrhea tested negative for C. difficile colitis. Patient is recent cholecystectomy, 10/[address] Salazar. This morning complains of nausea, vomiting, ongoing diarrhea, diffuse abdominal tenderness. T-max 101.5. Denies chest pain, palpitations or shortness of breath. No labs currently available. Objective - Vital Signs Vital signs: Vital Signs Temp 97.0 F L 12/31/17 15:00 Pulse 89 12/31/17 15:00 Resp 20 12/31/17 15:00 BP 81/46 12/31/17 15:00 Pulse Ox 95 12/31/17 15:00 Intake & Output 12/30/17 12/31/17 12/31/17 18:59 06:59 18:59 Weight 52.844 kg Other: Voiding Method Toilet Toilet Toilet # Voids 2 3 2 # Bowel Movements 1 3 - Exam PHYSICAL EXAM: VITAL SIGNS: As above GENERAL: Lying in bed, tired appearing HEENT: Conjunctivae normal. eyes normal. Oral mucosa moist NECK: No JVD. No thyroid enlargement. No LNs CARDIOVASCULAR: S1, S2 muffled. No murmur RESPIRATION: Breath sounds diminished in the bases. No rhonchi or crackles. No bronchial breathing. ABDOMEN: Soft, nondistended, diffuse tenderness. No guarding. no masses palpable. Bowel sounds heard. LEGS: No edema. no swelling PSYCHIATRY: Alert and oriented -3, mood and affect normal. NERVOUS SYSTEM: Cranial N 2-12 grossly normal. Moves all 4 limbs. Diffuse weakness No focal deficits. Skin: no ulcer no rash Joints: No active swelling. No inflammation. Lymphatic system. No LN neck axilla or groin. - Labs CBC & Chem 7: 12/29/17 07:28 12/29/17 07:28 Assessment and Plan Assessment: 1. Acute abdominal pain, accompanied by nausea, vomiting, acute on chronic diarrhea, possible colitis in a patient with history of ischemic colitis 2. Acute renal failure secondary to the above 3. CAD, history of [place] Plan: Continue current medication regime ,monitoring and symptomatic treatment. Flagyl added to med regime. Cultures pending. Infectious disease consulted. This is a recent cholecystectomy of Dr. Salazar, Dr. Salazar consulted. Labs including magnesium ordered. Remote telemetry ordered. Diet decreased to clear liquids. Prognosis guarded given multiple complex medical issues. The impression and plan of care has been dictated as directed. : I performed a history and examination of this patient, discussed the same with the dictator. I agree with the dictator's note ,documented as a scribe. Any additional findings or plans will be noted.
[2017-12-31] MEDS ORDERED: Magnesium Replacement Protocol 1 EACH MISC MISCELLANE PRN (16:49)
[2017-12-31] MEDS ORDERED: Potassium Replacement Protocol 1 EACH MISC MISCELLANE PRN (16:50)
[2017-12-31 16:53] LABS: Basophils # (A) 0.1 k/uL (0-0.2); Basophils % (A) 1 %; Eosinophils % (A) 0 %; HCT 35.7 % (34.0-46.0); HGB 11.9 gm/dL (11.4-16.0); Lymphocytes % (A) 30 %; MCH 29.7 pg (25.0-35.0); MCHC 33.2 g/dL (31.0-37.0); MCV 89.4 fL (80.0-100.0); Mean Platelet Volume 7.3; Monocytes # (A) 0.6 k/uL (0-1.0); Monocytes % (A) 6 %; Neutrophils # (A) 5.9 k/uL (1.3-7.7); Neutrophils % (A) 61 %; Platelet Count 274 k/uL (150-450); RBC 3.99 m/uL (3.80-5.40); RDW 13.3 % (11.5-15.5); WBC 9.8 k/uL (3.8-10.6)
[2017-12-31 17:07] LABS: Anion Gap 9 mmol/L; Blood Urea Nitrogen 11 mg/dL (7-17); Carbon Dioxide 20 mmol/L (22-30); Chloride 106 mmol/L (98-107); Glucose 93 mg/dL (74-99); Magnesium 1.4 mg/dL (1.6-2.3); Potassium 3.9 mmol/L (3.5-5.1); Sodium 135 mmol/L (137-145)
--- NOTE | 2017-12-31 22:11 | P.GSCN ---
History of Present Illness Consult date: 12/31/17 History of present illness: The patient is a 72-year-old female who presented a long-standing history of chronic diarrhea almost 1 year in duration. She had undergone multiple evaluations including [facility] without any improvement of her symptoms. Approximately 2-3 months ago she also had a cholecystectomy secondary to chronic cholecystitis. Her last colonoscopy was within 6 months was demonstrated colitis however pathology was inconclusive. She now presents with generalized weakness including dehydration from chronic diarrhea. Patient well known to me with history of colitis. As outpatient, she was pending evaluation with GI team. She now reports additional family members with severe colitis requiring steroids for treatment. Review of Systems REVIEW OF ORGAN SYSTEMS: CONSTITUTIONAL: No fevers or chills. Reports weakness. HEENT: No troubles with hearing. No reports of dysphagia. She wears glasses. ENDOCRINE: Has thyroid disorders. No diabetes. CARDIOVASCULAR: No recent myocardial infarction or congestive heart failure. RESPIRATORY: No asthma. No recent pneumonia. GASTROINTESTINAL: Lower endoscopy last week consistent with colitis. Reports chronic diarrhea. NEURO: No reports of stroke or seizure disorders. PSYCH: No reports of depression or suicidal ideation. HEMATOLOGIC: No easy bruising or bleeding LYMPHATIC: The patient denies any lumps and bumps around the neck. GENITOURINARY: History of recurrent urinary tract infection. MUSCULOSKELETAL: Has back pain, stiffness or joint arthritis. Past Medical History Past Medical History: Hypertension, Myocardial Infarction ([place]), Thyroid Disorder Additional Past Medical History / Comment(s): KIDNEY STONE Last Myocardial Infarction Date:: 2014 History of Any Multi-Drug Resistant Organisms: None Reported Past Surgical History: Cholecystectomy, Hysterectomy Additional Past Surgical History / Comment(s): Left ureteroscopy with lithotripsy 03/06/2014 and extracorporeal shockwave lithotripsy of right renal calculus 04/14/2014 Past Anesthesia/Blood Transfusion Reactions: No Reported Reaction Past Psychological History: No Psychological Hx Reported Smoking Status: Never smoker Past Alcohol Use History: None Reported Past Drug Use History: None Reported - Past Family History Mother Family Medical History: Cancer Additional Family Medical History / Comment(s): Breast Cancer Sister(s) Family Medical History: Cancer Additional Family Medical History / Comment(s): Breast Cancer Medications and Allergies Home Medications Medication Instructions Recorded Confirmed Type Aspirin [Adult Low Dose Aspirin EC] 81 mg PO DAILY 10/16/17 12/28/17 History Biotin 5 mg PO DAILY 10/16/17 12/28/17 History Calcium Carbonate [Calcium] 600 mg PO DAILY 10/16/17 12/28/17 History Cholecalciferol (Vitamin D3) 10,000 unit PO DAILY 10/16/17 12/28/17 History [Vitamin D3] Potassium 99 mg PO DAILY 10/16/17 12/28/17 History Ubidecarenone [Co Q-10] 100 mg PO DAILY 10/16/17 12/28/17 History Cholestyramine (with Sugar) 4 gm PO ACHS PRN #20 packet 10/20/17 12/28/17 Rx [Questran Packet] Acetaminophen Tab [Tylenol] 325 mg PO Q4H PRN 12/28/17 12/28/17 History Loperamide [Imodium] 2 mg PO QID #0 cap 01/03/18 Rx Pantoprazole [Protonix] 40 mg PO [id number] #30 tablet. 01/04/18 Rx Allergies Allergy/AdvReac Type Severity Reaction Status Date / Time cefepime Allergy Unknown Verified 12/28/17 14:42 Latex, Natural Rubber Allergy Rash/Hives Verified 12/28/17 14:42 Penicillins Allergy Unknown Verified 12/28/17 14:42 Childhood soap Allergy Swelling Verified 12/28/17 14:42 Surgical - Exam Vital Signs Temp Pulse Resp BP Pulse Ox 98.4 F 102 H 18 95/66 96 12/28/17 14:05 12/28/17 14:05 12/28/17 14:05 12/28/17 14:05 12/28/17 14:05 PHYSICAL EXAM: VITAL SIGNS: Currently stable. GENERAL: Well-developed in no acute distress. HEENT: No sclera icterus. Extraocular movements grossly intact. Dry buccal mucosa. Head is atraumatic, normocephalic. Hears conversational speech. No nasal drainage. NECK: Supple without lymphadenopathy. CHEST: Non-labored respirations and equal bilateral excursions. CARDIOVASCULAR: Regular rate with regular rhythm. Palpable 2+ radial pulses. ABDOMEN: Soft. Nondistended. Nontender. MUSCULOSKELETAL: No clubbing, cyanosis or edema. NEUROLOGIC: No focal or lateralizing signs. Cranial nerves II through XII grossly intact. PSYCH: Appropriate affect. Alert and oriented to person, place and time. SKIN: Good skin turgor. Well perfused. Results - Labs 01/04/18 08:06 01/04/18 08:06 Abnormal Lab Results - Last 24 Hours (Table) 12/31/17 Range/Units 16:29 Sodium 135 L (137-145) mmol/L Carbon Dioxide 20 L (22-30) mmol/L Calcium 8.0 L (8.4-10.2) mg/dL Magnesium 1.4 L (1.6-2.3) mg/dL Diabetes panel 12/31/17 Range/Units 16:29 Sodium 135 L (137-145) mmol/L Potassium 3.9 (3.5-5.1) mmol/L Chloride 106 (98-107) mmol/L Carbon Dioxide 20 L (22-30) mmol/L BUN 11 (7-17) mg/dL Creatinine 0.70 (0.52-1.04) mg/dL Glucose 93 (74-99) mg/dL Calcium 8.0 L (8.4-10.2) mg/dL Calcium panel 12/31/17 Range/Units 16:29 Calcium 8.0 L (8.4-10.2) mg/dL Pituitary panel 12/31/17 Range/Units 16:29 Sodium 135 L (137-145) mmol/L Potassium 3.9 (3.5-5.1) mmol/L Chloride 106 (98-107) mmol/L Carbon Dioxide 20 L (22-30) mmol/L BUN 11 (7-17) mg/dL Creatinine 0.70 (0.52-1.04) mg/dL Glucose 93 (74-99) mg/dL Calcium 8.0 L (8.4-10.2) mg/dL Adrenal panel 12/31/17 Range/Units 16:29 Sodium 135 L (137-145) mmol/L Potassium 3.9 (3.5-5.1) mmol/L Chloride 106 (98-107) mmol/L Carbon Dioxide 20 L (22-30) mmol/L BUN 11 (7-17) mg/dL Creatinine 0.70 (0.52-1.04) mg/dL Glucose 93 (74-99) mg/dL Calcium 8.0 L (8.4-10.2) mg/dL - Imaging CT scan - abdomen: report reviewed, image reviewed CT scan - pelvis: report reviewed, image reviewed (No diffuse free air identified. Findings consistent with colitis.) Assessment and Plan (1) Chronic diarrhea Status: Acute Code(s): K52.9 - NONINFECTIVE GASTROENTERITIS AND COLITIS, UNSPECIFIED SNOMED Code(s): 293147546 (2) Colitis Status: Acute Code(s): K52.9 - NONINFECTIVE GASTROENTERITIS AND COLITIS, UNSPECIFIED SNOMED Code(s): 66780662 (3) Dehydration syndrome Status: Acute Code(s): E86.0 - DEHYDRATION SNOMED Code(s): 29638873 (4) Elevated C-reactive protein (CRP) Status: Acute Code(s): R79.82 - ELEVATED C-REACTIVE PROTEIN (CRP) SNOMED Code(s): 720134025658189 (5) Ischemic colitis, enteritis, or enterocolitis Status: Acute Code(s): K55.9 - VASCULAR DISORDER OF INTESTINE, UNSPECIFIED SNOMED Code(s): 88260359 Plan: 1. May benefit from inpatient colonoscopy with long-standing chronic diarrhea and colitis on computed tomography scan. 2. Agree with GI consultation while inpatient. 3. Liquid diet in the interim. 4. C. diff is negative. May need antidiarrheals following colonoscopy.
[2017-12-31] MEDS: CIPROFLOXACIN HCL 500 MG TAB PO SCH (23:47)
--- NOTE | 2018-01-01 03:07 | CONS ---
CONSULTATION DATE OF SERVICE: 12/31/2017. REASON FOR CONSULTATION: Diarrhea and colitis. HISTORY OF PRESENT ILLNESS: The patient is a 72 -year-old female presenting to the ER at [facility] on 12/28/2017 with chief complaints of diarrhea that apparently the patient has off and on for a couple of months now. The patient did mention that she did have a cholecystectomy back in October of 2017 and seemed to have problem with diarrhea since then. The patient says the diarrhea would sometimes get better, however, she is not sure exactly what makes it better or what makes it worse. She has been going to the bathroom more than 10 times per day. Did not have any blood or mucus in the stool. She has been complaining of some crampy lower abdominal pain about 4 to 5/10, and no radiation. The patient has felt nauseated but no vomiting. Denies having any high- grade fever, rigors or chills and did not recall if she has received any antibiotics in the recent past. With these symptoms, the patient presented to the [facility] ER. On arrival to the ER, the patient has been afebrile. She did have a CT of the abdomen and pelvis that was suspicious for colitis. The patient did have a stool for C diff checked on December 29, which has been negative. Stool culture has been pending so far. The patient who did have a elevated white count 12.2, is down to 9.8 as of this morning. She has been treated with Keflex. The patient who seems to have problem with CEFEPIME AND PENICILLIN ALLERGY ALONG WITH FLAGYL. Because of her persistent diarrhea, Infectious Disease was consulted for further recommendation. Gastroenterology team has been consulted for possible colonoscopy during this admission. REVIEW OF SYSTEMS: CONSTITUTIONAL: Positive for weakness, some chills, but no high-grade fever. Eyes no complaint. ENT no complaint. Respiratory no complaint. Cardiovascular no complaint. Genitourinary no complaint. Gastrointestinal: As per HPI. Musculoskeletal no complaint. Integumentary: No complaint. Psychological: No complaint. Endocrine no complaint. Neurological no complaint. PAST MEDICAL HISTORY: Significant for kidney stones, coronary artery disease/NM. PAST SURGICAL HISTORY: Cholecystectomy, hysterectomy, left ureteroscopy with lithotripsy. SOCIAL HISTORY: Remote history of smoking. No drinking. No drug use. FAMILY HISTORY: Mother with history of breast cancer. Sister with history of breast cancer. ALLERGIES: ALLERGIES TO CEFEPIME, PENICILLIN, however, she has tolerated Keflex . MEDICATIONS: The patient is currently on aspirin, Keflex, Questran, Ativan, Flagyl, Narcan, Metamucil, and Lomotil. EXAMINATION: Blood pressure 81/46, pulse of 89, temperature 97. She is 95% on room air. General description is an elderly female, lying in bed in no distress. No tachypnea or accessory muscles of respiration use. HEENT: Shows no pallor or scleral icterus. Oral mucous membranes dry. No pharyngeal erythema or thrush. Neck: Trachea central. No thyromegaly. Lungs unlabored breathing. Clear to auscultation anteriorly. No wheeze or crackles. Heart S1, S2. Regular rate and rhythm. ABDOMEN: Soft, mildly tender in the lower quadrant area. No guarding or rigidity. No organomegaly. EXTREMITIES: No edema of feet. Skin examination: No rash or mass palpable. Neurological: Patient awake, alert, oriented x3. Mood and affect normal. LABS: Hemoglobin 11.9, white count 9.8, admission white count was 12.8 with a BUN of 11, creatinine 0.70. Electrolytes have been normal. Urine was positive with large leukocyte esterase with 39 WBC. Stool for C difficile has been negative. Cryptosporidium antigen was negative. was negative. Stool culture currently pending. IMPRESSION/PLAN: 1. Patient admitted to the hospital with diarrhea, intractable that she has off and on for a couple of months now with a CT suspicious for colitis with question of possible infectious versus noninfectious etiology with some of the family members having similar symptoms, concern for possible next inflammatory bowel disease being on the top of the list in a patient who did have a stool for C. difficile, which was negative. Wound culture has been negative so far. 2. Patient did have MULTIPLE ANTIBIOTIC ALLERGIES that do limit number of antibiotics that could be safely used. Her ALLERGY TO PENICILLIN AND CEFEPIME could be questionable in view of the patient tolerating Keflex without any problem. PLAN: 1. We will go ahead and discontinue the Lomotil as well as the Metamucil. 2. Discontinue the Keflex. 3. We will keep the patient on Flagyl, add Cipro to cover for the enteric gram- negative. 4. Await the colonoscopy and possible biopsy. 5. We will follow up on the clinical condition to further adjust medication if needed. Thank you for this consultation. Will follow this patient along with you. MMODL / IJN: [id number] /
[2018-01-01 06:35] VITALS: RESP 16
--- NOTE | 2018-01-01 07:18 | P.CONS ---
History of Present Illness - Reason for Consult Consult date: 12/31/17 Diarrhea - History of Present Illness The patient is a 72-year-old female who was admitted to the hospital with abdominal pains and diarrhea. She reported having had diarrhea for the last few months more evident to her since her cholecystectomy in October. She had a colonoscopy prior to her gallbladder surgery because of abdominal pain and diarrhea and apparently that showed colitis. The patient had stool tests on December 29 for C. difficile which was negative. She was scheduled to be seen in the GI office as outpatient but came to the hospital because of worsening symptoms. She reports nausea but no vomiting. No hematemesis or hematochezia. No fever or chills. Her hemoglobin in the hospital has been stable around 11.5. Denies extraintestinal manifestations of inflammatory bowel disease. Her daughter has colitis that required steroid therapy. Review of Systems Constitutional: Denies fever, chills, sweats, weight gain, or loss. HEENT: Negative for migraines, blurred vision or loss, earaches, drainage, tinnitus, oral mucosal lesions, dysphagia, or odynophagia. CARDIAC: Negative for chest pain, arrhythmias, or palpitation. RESPIRATORY: Negative for shortness of breath, hemoptysis, cough, or sputum production. GI: See HPI for pertinent findings. : Negative for hematuria, urgency, frequency, polyuria, or dysuria. GYNc: Negative vaginal discharge. MUSCULOSKELETAL: Negative for muscle aches, swelling, arthritis, and arthralgias. NEUROLOGIC: Negative for stroke or TIA. ENDOCRINE: Negative for thyroid problems. SKIN: Negative for rash or itching. PSYCHIATRIC: Negative history for depression and anxiety Past Medical History Past Medical History: Hypertension, Myocardial Infarction ([place]), Thyroid Disorder Additional Past Medical History / Comment(s): KIDNEY STONE Last Myocardial Infarction Date:: 2014 History of Any Multi-Drug Resistant Organisms: None Reported Past Surgical History: Cholecystectomy, Hysterectomy Additional Past Surgical History / Comment(s): Left ureteroscopy with lithotripsy 03/06/2014 and extracorporeal shockwave lithotripsy of right renal calculus 04/14/2014 Past Anesthesia/Blood Transfusion Reactions: No Reported Reaction Past Psychological History: No Psychological Hx Reported Smoking Status: Never smoker Past Alcohol Use History: None Reported Past Drug Use History: None Reported - Past Family History Mother Family Medical History: Cancer Additional Family Medical History / Comment(s): Breast Cancer Sister(s) Family Medical History: Cancer Additional Family Medical History / Comment(s): Breast Cancer Medications and Allergies Home Medications Medication Instructions Recorded Confirmed Type Aspirin [Adult Low Dose Aspirin EC] 81 mg PO DAILY 10/16/17 12/28/17 History Biotin 5 mg PO DAILY 10/16/17 12/28/17 History Calcium Carbonate [Calcium] 600 mg PO DAILY 10/16/17 12/28/17 History Cholecalciferol (Vitamin D3) 10,000 unit PO DAILY 10/16/17 12/28/17 History [Vitamin D3] Potassium 99 mg PO DAILY 10/16/17 12/28/17 History Ubidecarenone [Co Q-10] 100 mg PO DAILY 10/16/17 12/28/17 History Cholestyramine (with Sugar) 4 gm PO ACHS PRN #20 packet 10/20/17 12/28/17 Rx [Questran Packet] Acetaminophen Tab [Tylenol Tab] 325 mg PO Q4H PRN 12/28/17 12/28/17 History Diphenox-Atrop 2.5-0.025 mg 1 tab PO QID PRN 12/28/17 12/28/17 History [Lomotil] Allergies Allergy/AdvReac Type Severity Reaction Status Date / Time cefepime Allergy Unknown Verified 12/28/17 14:42 Latex, Natural Rubber Allergy Rash/Hives Verified 12/28/17 14:42 Penicillins Allergy Unknown Verified 12/28/17 14:42 Childhood soap Allergy Swelling Verified 12/28/17 14:42 Physical Exam Vitals: Vital Signs Temp Pulse Resp BP Pulse Ox 12/31/17 08:30 99.5 F 12/31/17 08:00 16 12/31/17 06:15 101.5 F H 94 16 115/55 94 L 12/30/17 23:00 99.2 F 98 16 114/54 97 12/30/17 21:00 16 12/30/17 16:00 16 12/30/17 15:00 97.6 F 85 16 106/51 95 Intake and Output 12/30/17 12/31/17 12/31/17 22:59 06:59 14:59 Other: Voiding Method Toilet Toilet # Voids 2 3 General appearance: The patient is alert, oriented, in no acute distress. HET: Head is normocephalic and atraumatic. Pupils are equal and reactive. Oropharynx is clear without lesions. Neck: Supple without lymphadenopathy. Trachea midline. Heart: S1 S2. Regular rate and rhythm. Lungs: No crackles or wheezes are heard. Abdomen: Soft, very mild soreness in the midepigastrium, nondistended with bowel sounds. No peritoneal signs. No palpable organomegaly or masses. Extremities: Normal skin color and turgor. No cyanosis, rash, ulceration, clubbing, or edema. Radial and pedal pulses are 2/4 bilaterally. Neurological: No focal deficits. Strength and sensation are grossly intact. Results CBC & Chem 7: 12/31/17 16:29 12/31/17 16:29 Assessment and Plan Assessment: Chronic diarrhea and history of colitis and family history of inflammatory bowel disease in her daughter. Plan: Agree with your current management. I will review her prior colonoscopy and consider repeat colonoscopy this admission. Meanwhile, she will continue with supportive management and antibiotics. Will follow with you with interest.
[2018-01-01] MEDS: CIPROFLOXACIN HCL 500 MG TAB PO SCH ×2 (08:00→22:08)
[2018-01-01] MEDS: metroNIDAZOLE-NS PMX 500 MG in SALINE 1 100ML.BAG IVPB SCH ×2 (08:00→15:32)
[2018-01-01] MEDS: CHOLESTYRAMINE (WITH SUGAR) 4 GM PACKET PO SCH ×2 (08:00→22:08)
[2018-01-01] MEDS: ASPIRIN 81 MG PO SCH (08:00)
--- NOTE | 2018-01-01 09:03 | P.PN ---
Subjective Progress Note Date: 01/01/18 Principal diagnosis: colitis diarrhea Still passing nonbloody loose bowel movements. Minimal abdominal discomfort. C. diff negative. T-max 101.5. Receiving Cipro Flagyl. Morning chemistries pending. Objective - Vital Signs Vital signs: Vital Signs Temp 97.7 F 01/01/18 06:34 Pulse 76 01/01/18 06:34 Resp 16 01/01/18 06:34 BP 83/51 01/01/18 06:34 Pulse Ox 95 01/01/18 06:34 Intake & Output 12/31/17 01/01/18 01/01/18 18:59 06:59 18:59 Weight 52.844 kg Other: Voiding Method Toilet Toilet Bedside Commode # Voids 2 3 # Bowel Movements 3 1 - Exam General appearance: The patient is alert, oriented, in no acute distress. HET: Head is normocephalic and atraumatic. Pupils are equal and reactive. Oropharynx is clear without lesions. Neck: Supple without lymphadenopathy. Trachea midline. Heart: S1 S2. Regular rate and rhythm. Lungs: No crackles or wheezes are heard. Abdomen: Soft, nontender, nondistended with bowel sounds. No peritoneal signs. No palpable organomegaly or masses. Extremities: Normal skin color and turgor. No cyanosis, rash, ulceration, clubbing, or edema. Radial and pedal pulses are 2/4 bilaterally. Neurological: No focal deficits. Strength and sensation are grossly intact. - Labs CBC & Chem 7: 12/31/17 16:29 12/31/17 16:29 Labs: Abnormal Lab Results - Last 24 Hours (Table) 12/31/17 Range/Units 16:29 Sodium 135 L (137-145) mmol/L Carbon Dioxide 20 L (22-30) mmol/L Calcium 8.0 L (8.4-10.2) mg/dL Magnesium 1.4 L (1.6-2.3) mg/dL Microbiology - Last 24 Hours (Table) 12/31/17 16:53 Urine Culture - Preliminary Urine,Voided Assessment and Plan (1) Chronic diarrhea Narrative/Plan: History of colitis possible self limiting infectious possible inflammatory possible ischemic Current Visit: No Status: Acute Code(s): K52.9 - NONINFECTIVE GASTROENTERITIS AND COLITIS, UNSPECIFIED SNOMED Code(s): 382729181 (2) Colitis Current Visit: Yes Status: Acute Code(s): K52.9 - NONINFECTIVE GASTROENTERITIS AND COLITIS, UNSPECIFIED SNOMED Code(s): 75133759 Plan: 1. Clear liquid diet today. CRP. Nothing by mouth after clear liquid diet in a.m. Continue antibiotics. We'll proceed with colonoscopy evaluation tomorrow. The paper production engineer has discussed the risks, benefits and alternative therapies for the above-mentioned procedure and for both sedation/analgesia as well as necessary blood product administration, if indicated, as they pertain to this patient. The patient has indicated understanding and acceptance of the risks and procedures discussed. Assessment and plan a care discussed with Dr. Acosta
[2018-01-01 10:10] LABS: Magnesium 1.5 mg/dL (1.6-2.3)
[2018-01-01 11:01] LABS: C Reactive Protein 182.1 mg/L (<10.0)
[2018-01-01] MEDS ORDERED: MAGNESIUM SULFATE-D5W PMX 1 GM in DEXTROSE/WATER 1 100ML.BAG IVPB ONE (12:00)
--- NOTE | 2018-01-01 12:46 | P.PN ---
<Annemarie Esposito - Last Filed: 01/01/18 12:39> Subjective Progress Note Date: 01/01/18 72-year-old female being seen on rounds this morning. Did discuss the plan of care with the GI team C. diff was negative plan for colonoscopy by GI service tomorrow continues to have frequent loose stool no labs pending magnesium this morning 1.5 Objective - Vital Signs Vital signs: Vital Signs Temp 97.7 F 01/01/18 06:34 Pulse 76 01/01/18 06:34 Resp 16 01/01/18 06:34 BP 83/51 01/01/18 06:34 Pulse Ox 95 01/01/18 06:34 Intake & Output 12/31/17 01/01/18 01/01/18 18:59 06:59 18:59 Weight 52.844 kg Other: Voiding Method Toilet Toilet Bedside Commode # Voids 2 3 # Bowel Movements 3 1 - Exam Physical exam 72-year-old female sitting up in bed appears in no acute distress Lungs adequate air movement bilaterally Heart S1-S2 audible regular Abdomen soft nontender states having frequent bowel movements no blood noted currently reporting no abdominal pain clear liquid diet tolerating no nausea vomiting Extremities no edema - Labs CBC & Chem 7: 12/31/17 16:29 12/31/17 16:29 Labs: Abnormal Lab Results - Last 24 Hours (Table) 12/31/17 01/01/18 Range/Units 16:29 08:59 Sodium 135 L (137-145) mmol/L Carbon Dioxide 20 L (22-30) mmol/L Calcium 8.0 L (8.4-10.2) mg/dL Magnesium 1.4 L 1.5 L (1.6-2.3) mg/dL C-Reactive Protein 182.1 H (<10.0) mg/L Microbiology - Last 24 Hours (Table) 12/31/17 16:53 Urine Culture - Preliminary Urine,Voided Assessment and Plan Assessment: Impression Chronic diarrhea with a history of colitis possible self-limiting infectious or inflammatory hypo-magnesium family history positive for inflammatory bowel disease daughter A recent cholecystectomy October 2017 Acute abdominal pain with nausea vomiting acute on chronic diarrhea possible related to colitis Possible UTI not ruled out plan Agree with plan of care per GI proceeding with a colonoscopy tomorrow await results IV fluid for hydration magnesium being replaced Will follow with you The above impression and plan of care have been discussed and directed by signing physician. Annemarie Espsoito nurse practitioner acting as scribe for signing physician. <MarieEufemia N - Last Filed: 01/01/18 18:11> Objective - Vital Signs Vital signs: Vital Signs Temp 97.9 F 01/01/18 14:18 Pulse 74 01/01/18 14:18 Resp 16 01/01/18 14:18 BP 94/70 01/01/18 14:18 Pulse Ox 97 01/01/18 14:18 Intake & Output 12/31/17 01/01/18 01/01/18 18:59 06:59 18:59 Intake Total 440 Balance 440 Weight 52.844 kg Intake: Intake, IV Titration 200 Amount Magnesium Sulfate-D5w Pmx 100 1 gm In Dextrose/Water 1 100ml.bag @ 100 mls/hr IVPB ONCE ONE Rx#: [id number] metroNIDAZOLE-NS PMX 500 100 mg In Saline 1 100ml.bag @ 100 mls/hr IVPB Q8HR ROBERTO Rx#:[id number] Oral 240 Other: Voiding Method Toilet Toilet Bedside Commode # Voids 2 3 2 # Bowel Movements 3 1 2 - Labs CBC & Chem 7: 01/01/18 08:59 01/01/18 08:59 Labs: Abnormal Lab Results - Last 24 Hours (Table) 01/01/18 01/01/18 Range/Units 08:59 08:59 Potassium 3.3 L (3.5-5.1) mmol/L Chloride 108 H (98-107) mmol/L Carbon Dioxide 21 L (22-30) mmol/L Calcium 8.0 L (8.4-10.2) mg/dL Magnesium 1.5 L (1.6-2.3) mg/dL C-Reactive Protein 182.1 H (<10.0) mg/L Microbiology - Last 24 Hours (Table) 12/31/17 12:53 Blood Culture - Preliminary Blood No Growth after 24 hours 12/31/17 12:05 Blood Culture - Preliminary Blood No Growth after 24 hours 12/31/17 16:53 Urine Culture - Preliminary Urine,Voided Assessment and Plan Plan: She is taking her bowel prep. She is pending colonoscopy for colitis. No surgical intervention at this time. Will follow results of pathology from colonoscopy when available.
[2018-01-01 13:06] LABS: Basophils # (A) 0.1 k/uL (0-0.2); Basophils % (A) 1 %; Eosinophils # (A) 0.4 k/uL (0-0.7); Eosinophils % (A) 7 %; HGB 11.6 gm/dL (11.4-16.0); Lymphocytes # (A) 1.4 k/uL (1.0-4.8); Lymphocytes % (A) 24 %; MCH 29.6 pg (25.0-35.0); MCHC 32.2 g/dL (31.0-37.0); MCV 92.2 fL (80.0-100.0); Mean Platelet Volume 7.7; Monocytes # (A) 0.4 k/uL (0-1.0); Monocytes % (A) 7 %; Neutrophils # (A) 3.4 k/uL (1.3-7.7); Neutrophils % (A) 58 %; Platelet Count 285 k/uL (150-450); RBC 3.91 m/uL (3.80-5.40); RDW 13.6 % (11.5-15.5); WBC 5.9 k/uL (3.8-10.6)
[2018-01-01 13:12] LABS: Potassium 3.3 mmol/L (3.5-5.1)
[2018-01-01] MEDS ORDERED: PEG 3350-NA SULF,BICARB,CL/KCL 4,000 ML BOTTLE PO ONE (16:00)
--- NOTE | 2018-01-01 18:08 | P.PN ---
Subjective Progress Note Date: 01/01/18 Progress note being dictated for Dr. Cloud. Interval history: This a 72-year-old female admitted with acute renal failure, diarrhea, acute UTI and multiple other medical issues in a patient with history of ischemic colitis, dehydration syndrome, chronic diarrhea, right hydronephrosis. Diarrhea tested negative for C. difficile colitis. Patient is recent cholecystectomy, 10/[address] Curtis. This morning complains of nausea, vomiting, ongoing diarrhea, diffuse abdominal tenderness. T-max 101.5. Denies chest pain, palpitations or shortness of breath. No labs currently available. 01/01/2018 afebrile, normal WBC. Diet had been decreased to clear liquids yesterday given nausea and vomiting. No further emesis, nausea improving. Diarrhea mildly improved this morning-no bleeding noted. Denies abdominal pain .Potassium down to 3.3, magnesium 1.5. Evaluated by both GI and surgery with recommendations noted. Scheduled for colonoscopy in a.m. with GI. Objective - Vital Signs Vital signs: Vital Signs Temp 97.7 F 01/01/18 06:34 Pulse 76 01/01/18 06:34 Resp 16 01/01/18 06:34 BP 83/51 01/01/18 06:34 Pulse Ox 95 01/01/18 06:34 Intake & Output 12/31/17 01/01/18 01/01/18 18:59 06:59 18:59 Weight 52.844 kg Other: Voiding Method Toilet Toilet Bedside Commode # Voids 2 3 # Bowel Movements 3 1 - Exam PHYSICAL EXAM: VITAL SIGNS: As above GENERAL: Lying in bed, tired appearing HEENT: Conjunctivae normal. eyes normal. Oral mucosa moist NECK: No JVD. No thyroid enlargement. No LNs CARDIOVASCULAR: S1, S2 muffled. No murmur RESPIRATION: Breath sounds diminished in the bases. No rhonchi or crackles. No bronchial breathing. ABDOMEN: Soft, nondistended, diffuse tenderness. No guarding. no masses palpable. Bowel sounds heard. LEGS: No edema. no swelling PSYCHIATRY: Alert and oriented -3, mood and affect normal. NERVOUS SYSTEM: Cranial N 2-12 grossly normal. Moves all 4 limbs. Diffuse weakness No focal deficits. Skin: no ulcer no rash Joints: No active swelling. No inflammation. Lymphatic system. No LN neck axilla or groin. - Labs CBC & Chem 7: 01/01/18 08:59 01/01/18 08:59 Labs: Abnormal Lab Results - Last 24 Hours (Table) 12/31/17 01/01/18 Range/Units 16:29 08:59 Sodium 135 L (137-145) mmol/L Carbon Dioxide 20 L (22-30) mmol/L Calcium 8.0 L (8.4-10.2) mg/dL Magnesium 1.4 L 1.5 L (1.6-2.3) mg/dL C-Reactive Protein 182.1 H (<10.0) mg/L Microbiology - Last 24 Hours (Table) 12/31/17 16:53 Urine Culture - Preliminary Urine,Voided Assessment and Plan Assessment: 1. Acute abdominal pain, accompanied by nausea, vomiting, acute on chronic diarrhea, possible colitis in a patient with history of ischemic colitis 2. Acute renal failure secondary to the above 3. CAD, history of [place] 4. Hypomagnesemia 5. Hypokalemia Plan: Continue current medication regime ,monitoring and symptomatic treatment. Continues on Cipro and Flagyl. Scheduled for colonoscopy tomorrow. Gentle IV fluid hydration. Electrolyte supplementation ordered. Cultures in progress. The impression and plan of care has been dictated as directed. : I performed a history and examination of this patient, discussed the same with the dictator. I agree with the dictator's note ,documented as a scribe. Any additional findings or plans will be noted.
[2018-01-01] MEDS: SODIUM CHLORIDE 0.9% 1,000 ML with POTASSIUM CHLORIDE 40 MEQ IV SCH ×2 (18:49)
--- NOTE | 2018-01-01 21:59 | PN ---
PROGRESS NOTE DATE OF SERVICE: 01/01/2018. REASON FOR FOLLOW UP: Colitis, question of inflammatory bowel disease versus infectious colitis. INTERVAL HISTORY: The patient is afebrile. She is breathing comfortably. No nausea or vomiting has been noticed. No worsening abdominal pain, though still has diarrhea. EXAMINATION: Blood pressure 94/70 with a pulse of 74, temperature 97.9. She is 97% on room air. General description is an elderly female, lying in bed in no distress. RESPIRATORY SYSTEM: Unlabored breathing. Clear to auscultation anteriorly. HEART: S1, S2. Regular rate and rhythm. ABDOMEN: Soft. No tenderness. EXTREMITIES: No edema of the feet. LABS: Hemoglobin 11.6, white count 5.9 with a BUN of 12, creatinine 0.79. DIAGNOSTIC IMPRESSION AND PLAN: Patient with evidence of colitis, questionable infection versus noninfectious etiology. So far infection workup is negative and negative Clostridium difficile and stool culture. Continue Cipro waiting for the colonoscopy. Continue supportive care. MMODL / IJN: [id number] /
[2018-01-02] MEDS: metroNIDAZOLE-NS PMX 500 MG in SALINE 1 100ML.BAG IVPB SCH ×4 (00:40→23:46)
[2018-01-02] MEDS: ASPIRIN 81 MG PO SCH (07:41)
[2018-01-02] MEDS: ONDANSETRON 4 MG/2 ML VIAL IVP PRN (07:42)
[2018-01-02] MEDS: CHOLESTYRAMINE (WITH SUGAR) 4 GM PACKET PO SCH ×2 (07:42→21:00)
[2018-01-02] MEDS: CIPROFLOXACIN HCL 500 MG TAB PO SCH ×2 (07:42→21:00)
[2018-01-02] MEDS: SODIUM CHLORIDE 0.9% 1,000 ML with POTASSIUM CHLORIDE 40 MEQ IV SCH ×4 (07:42→21:35)
[2018-01-02 09:17] LABS: Calcium 8.3 mg/dL (8.4-10.2); Potassium 3.8 mmol/L (3.5-5.1)
[2018-01-02 09:53] LABS: Basophils # (A) 0.1 k/uL (0-0.2); Basophils % (A) 1 %; Eosinophils # (A) 0.5 k/uL (0-0.7); Eosinophils % (A) 9 %; HGB 11.4 gm/dL (11.4-16.0); MCH 28.6 pg (25.0-35.0); MCHC 31.8 g/dL (31.0-37.0); Mean Platelet Volume 7.5; Neutrophils # (A) 2.7 k/uL (1.3-7.7); Platelet Count 311 k/uL (150-450); RDW 13.4 % (11.5-15.5); WBC 5.8 k/uL (3.8-10.6)
[2018-01-02 12:11] LABS: Lymphocytes # (A) 1.8 k/uL (1.0-4.8); Lymphocytes % (A) 33 %; Monocytes # (A) 0.4 k/uL (0-1.0); Monocytes % (A) 6 %; Neutrophils % (A) 48 %
--- NOTE | 2018-01-02 14:27 | PN ---
PROGRESS NOTE DATE OF SERVICE: 01/02/2018. REASON FOR FOLLOWUP: Colitis and a question of infectious. INTERVAL HISTORY: The patient is currently afebrile. She is breathing comfortably. Her diarrhea has improved. She is scheduled for a colonoscopy this afternoon. No abdominal pain. No nausea, vomiting. EXAMINATION: Blood pressure is 92/51 with a pulse of 81, temperature 97.4. She is 94% on room air. General description is an elderly female up in the bed in no distress. RESPIRATORY SYSTEM: Unlabored breathing. Clear to auscultation anteriorly. HEART: S1, S2. Regular rate and rhythm. ABDOMEN: Soft, no tenderness. LABS: Hemoglobin 11.4, white count 5.8 with a BUN of 7, creatinine 0.80. DIAGNOSTIC IMPRESSION AND PLAN: Patient with colitis, question of possible inflammatory bowel disease versus less likely infectious colitis. Waiting for the colonoscopy and biopsy. Currently covered with Cipro and Flagyl that will be continued along with cholestyramine. Continue supportive care. MMODL / IJN: [id number] /
--- NOTE | 2018-01-02 15:58 | P.PN ---
Subjective Progress Note Date: 01/02/18 Progress note being dictated for Dr. Cloud. Interval history: This a 72-year-old female admitted with acute renal failure, diarrhea, acute UTI and multiple other medical issues in a patient with history of ischemic colitis, dehydration syndrome, chronic diarrhea, right hydronephrosis. Diarrhea tested negative for C. difficile colitis. Patient is recent cholecystectomy, 10/[address] Curtis. This morning complains of nausea, vomiting, ongoing diarrhea, diffuse abdominal tenderness. T-max 101.5. Denies chest pain, palpitations or shortness of breath. No labs currently available. 01/01/2018 afebrile, normal WBC. Diet had been decreased to clear liquids yesterday given nausea and vomiting. No further emesis, nausea improving. Diarrhea mildly improved this morning-no bleeding noted. Denies abdominal pain .Potassium down to 3.3, magnesium 1.5. Evaluated by both GI and surgery with recommendations noted. Scheduled for colonoscopy in a.m. with GI. 01/02/2018 maintained on IV Cipro and Flagyl as per infectious disease completed prep for colonoscopy this afternoon. Staff reports clear return. Potassium 3.8. Maintained on gentle IV fluid hydration with potassium. Denies abdominal pain, no emesis, mild nausea this morning-subsided. Afebrile, normal WBC. Urine culture reporting gram-negative bacilli. Denies chest pain, palpitations or shortness of breath. Objective - Vital Signs Vital signs: Vital Signs Temp 97.4 F L 01/02/18 06:33 Pulse 81 01/02/18 06:33 Resp 16 01/02/18 06:33 BP 92/51 01/02/18 06:33 Pulse Ox 94 L 01/02/18 06:33 Intake & Output 01/01/18 01/02/18 01/02/18 18:59 06:59 18:59 Intake Total 440 Balance 440 Intake: Intake, IV Titration 200 Amount Magnesium Sulfate-D5w Pmx 100 1 gm In Dextrose/Water 1 100ml.bag @ 100 mls/hr IVPB ONCE ONE Rx#: [id number] metroNIDAZOLE-NS PMX 500 100 mg In Saline 1 100ml.bag @ 100 mls/hr IVPB Q8HR ROBERTO Rx#:[id number] Oral 240 Other: Voiding Method Bedside Commode Bedside Commode # Voids 2 2 # Bowel Movements 2 3 - Exam PHYSICAL EXAM: VITAL SIGNS: As above GENERAL: Sitting up in bed, no acute distress HEENT: Conjunctivae normal. eyes normal. Oral mucosa dry NECK: No JVD. No thyroid enlargement. No LNs CARDIOVASCULAR: S1, S2 muffled. No murmur RESPIRATION: Breath sounds diminished in the bases. No rhonchi or crackles. ABDOMEN: Soft, nondistended, diffuse tenderness. No guarding. no masses palpable. Positive Bowel sounds LEGS: No edema. no swelling PSYCHIATRY: Alert and oriented -3, mood and affect normal. NERVOUS SYSTEM: Cranial N 2-12 grossly normal. Moves all 4 limbs. Diffuse weakness No focal deficits. Skin: no ulcer no rash Joints: No active swelling. No inflammation. Lymphatic system. No LN neck axilla or groin. - Labs CBC & Chem 7: 01/02/18 08:02 01/02/18 08:02 Labs: Abnormal Lab Results - Last 24 Hours (Table) 01/02/18 Range/Units 08:02 Chloride 110 H (98-107) mmol/L Calcium 8.3 L (8.4-10.2) mg/dL Microbiology - Last 24 Hours (Table) 12/31/17 12:53 Blood Culture - Preliminary Blood No Growth after 48 hours 12/31/17 12:05 Blood Culture - Preliminary Blood No Growth after 48 hours 12/29/17 08:34 Stool Culture - Final Stool 12/31/17 16:53 Urine Culture - Preliminary Urine,Voided Gram Neg Bacilli Assessment and Plan Assessment: 1. Acute abdominal pain, accompanied by nausea, vomiting, acute on chronic diarrhea, possible colitis in a patient with history of ischemic colitis 2. Acute renal failure secondary to the above 3. CAD, history of [place] 4. Hypomagnesemia 5. Hypokalemia 6. Acute UTI with gram-negative bacilli Plan: Continue current medication regime ,monitoring and symptomatic treatment. Maintain IV antibiotics as per infectious disease. NPO, awaiting colonoscopy.Continues on Cipro and Flagyl. Maintain Gentle IV fluid hydration. Magnesium level pending. Cultures in progress. The impression and plan of care has been dictated as directed. : I performed a history and examination of this patient, discussed the same with the dictator. I agree with the dictator's note ,documented as a scribe. Any additional findings or plans will be noted.
[2018-01-02] MEDS ORDERED: PROPOFOL 10 MG/ML 20 ML VIAL IV ONE (17:09)
[2018-01-02] MEDS ORDERED: LIDOCAINE 1% INJ 10MG/ML (20 ML MDV) ONE (17:09)
[2018-01-02] MEDS ORDERED: IV FLUID CONTINUATION 1,000 ML IV ONE (17:18)
--- NOTE | 2018-01-02 17:49 | P.PCN ---
Date of Procedure: 01/02/18 Procedure(s) Performed: Procedure: Colonoscopy and biopsy. Preoperative diagnosis: Chronic diarrhea and history of colitis. Postoperative diagnosis: 1. Sigmoid diverticulosis with no evidence of acute diverticulitis or strictures. 2. Colon and terminal ileum reveals no evidence of inflammatory bowel disease. 3. Biopsies obtained from the terminal ileum and randomly from the colon area Preparation: GoLYTELY prep. Sedation: Was provided by anesthesia. Brief clinical history: The patient is a 72-year-old female who was admitted to the hospital with abdominal pains and diarrhea. She reported having had diarrhea for the last few months more evident to her since her cholecystectomy in October. She had a colonoscopy prior to her gallbladder surgery because of abdominal pain and diarrhea and apparently that showed colitis. The patient had stool tests on December 29 for C. difficile which was negative. She was scheduled to be seen in the GI office as outpatient but came to the hospital because of worsening symptoms. She reports nausea but no vomiting. No hematemesis or hematochezia. No fever or chills. Her hemoglobin in the hospital has been stable around 11.5. Denies extraintestinal manifestations of inflammatory bowel disease. Her daughter has colitis that required steroid therapy. Other details are summarized in the history and physical and dictated consultations and progress notes. This evaluation is to assess for inflammatory bowel disease. Procedure: With the patient on her left lateral decubitus position and after informed consent and adequate sedation, the perianal area was inspected and it did not show any fissures or fistulas. There were no masses felt on digital rectal examination. The Olympus CFQ 160L video colonoscope was then inserted in the rectum in the usual fashion and advanced to the cecum. I intubated the ileocecal valve and examined the terminal ileum. Terminal ileum and colon appeared healthy with no edema, erythema, friability, ulceration, exudation or spontaneous bleeding. Several diverticular orifices were seen scattered in the sigmoid but there was no evidence of acute diverticulitis or strictures. I obtained biopsies from the terminal ileum and I obtained random biopsies from the colon as well then I retroflexed endoscope in the rectum before the endoscope was withdrawn. The patient tolerated the procedure well. Plan: The patient was reassured and I discussed with her niece. Will await biopsy results. In the meantime, will allow regular diet and continue symptomatic treatment. Further plans based on her course and biopsy results. We will keep you updated on her progress.
[2018-01-02] MEDS: LORATADINE 10 MG TAB PO SCH (22:04)
--- NOTE | 2018-01-02 22:20 | P.PN ---
Subjective Progress Note Date: 01/02/18 She reports moderate diarrhea. She has completed a colonoscopy with biopsies done by Dr. Acosta. Per nursing, he is concerned of volume overload. Objective - Vital Signs Vital signs: Vital Signs Temp 98.0 F 01/02/18 14:47 Pulse 73 01/02/18 14:47 Resp 16 01/02/18 14:47 BP 104/68 01/02/18 14:47 Pulse Ox 98 01/02/18 14:47 Intake & Output 01/02/18 01/02/18 01/03/18 06:59 18:59 06:59 Intake Total 150 240 Balance 150 240 Weight 52.844 kg Intake: IV 150 Oral 240 Other: Voiding Method Bedside Commode Bedside Commode # Voids 2 3 # Bowel Movements 3 4 1 - Exam ABDOMEN: No peritonitis. Soft GENERAL: Well developed and in no acute distress. Pleasant. HEENT: No sclera icterus. Extraocular movements grossly intact. Moist buccal mucosa. Head is atraumatic, normocephalic. Hears conversational speech. No nasal drainage. NECK: Supple without lymphadenopathy. No JV distention. CHEST: Non-labored respirations and equal bilateral excursions. CARDIOVASCULAR: Regular rate and rhythm. Palpable 2+ radial pulses. MUSCULOSKELETAL: No clubbing, cyanosis or edema. NEUROLOGIC: No focal or lateralizing signs. PSYCH: Appropriate affect. Alert and oriented to person, place and time. SKIN: Good skin turgor. Well perfused. - Labs CBC & Chem 7: 01/03/18 07:34 01/03/18 07:34 Labs: Abnormal Lab Results - Last 24 Hours (Table) 01/02/18 Range/Units 08:02 Chloride 110 H (98-107) mmol/L Calcium 8.3 L (8.4-10.2) mg/dL Microbiology - Last 24 Hours (Table) 12/31/17 12:53 Blood Culture - Preliminary Blood No Growth after 48 hours 12/31/17 12:05 Blood Culture - Preliminary Blood No Growth after 48 hours 12/29/17 08:34 Stool Culture - Final Stool 12/31/17 16:53 Urine Culture - Preliminary Urine,Voided Gram Neg Bacilli Assessment and Plan (1) Colitis Current Visit: Yes Status: Acute Code(s): K52.9 - NONINFECTIVE GASTROENTERITIS AND COLITIS, UNSPECIFIED SNOMED Code(s): 72773714 (2) Chronic diarrhea Current Visit: No Status: Acute Code(s): K52.9 - NONINFECTIVE GASTROENTERITIS AND COLITIS, UNSPECIFIED SNOMED Code(s): 938811046 Plan: 1. Will follow results of pathology from colonoscopy when available. 2. Start anti-diarrheals.
[2018-01-02] MEDS: DIPHENOX-ATROP 2.5-0.025 MG 1 EACH TAB PO SCH (22:44)
[2018-01-02] MEDS: MAGNESIUM SULFATE-D5W PMX 1 GM in DEXTROSE/WATER 1 100ML.BAG IVPB SCH (22:44)
--- NOTE | 2018-01-03 00:15 | XR ---
EXAMINATION TYPE: XR chest 1V portable DATE OF EXAM: 01/03/2018 COMPARISON: NONE HISTORY: Chest pain TECHNIQUE: Single frontal view of the chest is obtained. FINDINGS: There is some blunting of the costophrenic angles. There is no gross heart failure. Heart is borderline enlarged. There is probably mild infiltrate in the right lower lobe. There are chest le ads. IMPRESSION: Small pleural effusions and mild infiltrate in the right lower lobe. No gross heart fail ure.
[2018-01-03] MEDS: SODIUM CHLORIDE 0.9% 1,000 ML with POTASSIUM CHLORIDE 40 MEQ IV SCH ×2 (00:25)
[2018-01-03] MEDS: MAGNESIUM SULFATE-D5W PMX 1 GM in DEXTROSE/WATER 1 100ML.BAG IVPB SCH ×2 (00:55→02:03)
[2018-01-03 08:10] LABS: Basophils # (A) 0.1 k/uL (0-0.2); Basophils % (A) 2 %; Eosinophils # (A) 0.5 k/uL (0-0.7); Eosinophils % (A) 8 %; HCT 35.7 % (34.0-46.0); HGB 11.5 gm/dL (11.4-16.0); Lymphocytes # (A) 1.8 k/uL (1.0-4.8); Lymphocytes % (A) 32 %; MCH 29.6 pg (25.0-35.0); MCHC 32.1 g/dL (31.0-37.0); MCV 92.1 fL (80.0-100.0); Mean Platelet Volume 6.9; Monocytes # (A) 0.4 k/uL (0-1.0); Monocytes % (A) 8 %; Neutrophils # (A) 2.6 k/uL (1.3-7.7); Neutrophils % (A) 47 %; Platelet Count 334 k/uL (150-450); RBC 3.87 m/uL (3.80-5.40); RDW 13.7 % (11.5-15.5); WBC 5.6 k/uL (3.8-10.6)
[2018-01-03 08:15] LABS: Calcium 8.1 mg/dL (8.4-10.2); Potassium 4.2 mmol/L (3.5-5.1)
[2018-01-03] MEDS: CHOLESTYRAMINE (WITH SUGAR) 4 GM PACKET PO SCH ×2 (08:38→16:45)
[2018-01-03] MEDS: CIPROFLOXACIN HCL 500 MG TAB PO SCH ×2 (08:38→20:07)
[2018-01-03] MEDS: ASPIRIN 81 MG PO SCH (08:38)
[2018-01-03] MEDS: metroNIDAZOLE-NS PMX 500 MG in SALINE 1 100ML.BAG IVPB SCH ×3 (08:38→23:26)
[2018-01-03] MEDS: DIPHENOX-ATROP 2.5-0.025 MG 1 EACH TAB PO SCH (08:41)
[2018-01-03] MEDS: LORATADINE 10 MG TAB PO SCH (09:09)
--- NOTE | 2018-01-03 10:42 | P.PN ---
Subjective Progress Note Date: 01/03/18 Principal diagnosis: colitis diarrhea Status post colonoscopy yesterday for evaluation of chronic diarrhea and history of colitis with evidence of sigmoid diverticulosis but no evidence of diverticulitis. Colon and terminal ileum revealed no evidence of IBD biopsies obtained. Still passing loose nonbloody stools. Minimal abdominal discomfort. Afebrile. Tolerating regular diet. Objective - Vital Signs Vital signs: Vital Signs Temp 97.0 F L 01/02/18 22:42 Pulse 74 01/02/18 22:42 Resp 16 01/02/18 22:42 BP 99/67 01/02/18 22:42 Pulse Ox 95 01/02/18 22:42 Intake & Output 01/02/18 01/03/18 01/03/18 18:59 06:59 18:59 Intake Total 150 1400 480 Balance 150 1400 480 Weight 52.844 kg 52.844 kg Intake: IV 150 Oral 1400 480 Other: Voiding Method Bedside Commode Bedside Commode # Voids 3 1 # Bowel Movements 4 1 1 - Exam General appearance: The patient is alert, oriented, in no acute distress. HET: Head is normocephalic and atraumatic. Pupils are equal and reactive. Oropharynx is clear without lesions. Neck: Supple without lymphadenopathy. Trachea midline. Heart: S1 S2. Regular rate and rhythm. Lungs: No crackles or wheezes are heard. Abdomen: Soft, nontender, nondistended with bowel sounds. No peritoneal signs. No palpable organomegaly or masses. Extremities: Normal skin color and turgor. No cyanosis, rash, ulceration, clubbing, or edema. Radial and pedal pulses are 2/4 bilaterally. Neurological: No focal deficits. Strength and sensation are grossly intact. - Labs CBC & Chem 7: 01/03/18 07:34 01/03/18 07:34 Labs: Abnormal Lab Results - Last 24 Hours (Table) 01/03/18 Range/Units 07:34 Chloride 112 H (98-107) mmol/L Carbon Dioxide 19 L (22-30) mmol/L Calcium 8.1 L (8.4-10.2) mg/dL Microbiology - Last 24 Hours (Table) 12/31/17 16:53 Urine Culture - Final Urine,Voided Escherichia coli 12/31/17 12:53 Blood Culture - Preliminary Blood No Growth after 48 hours 12/31/17 12:05 Blood Culture - Preliminary Blood No Growth after 48 hours 12/29/17 08:34 Stool Culture - Final Stool Assessment and Plan (1) Chronic diarrhea Narrative/Plan: Status post EGD colonoscopy sigmoid diverticulosis no evidence of diverticulitis or inflammatory bowel disease biopsies pending. Underlying microscopic colitis cannot be entirely exclude. Stool studies unremarkable. Current Visit: No Status: Acute Code(s): K52.9 - NONINFECTIVE GASTROENTERITIS AND COLITIS, UNSPECIFIED SNOMED Code(s): 749254851 (2) Colitis Current Visit: Yes Status: Acute Code(s): K52.9 - NONINFECTIVE GASTROENTERITIS AND COLITIS, UNSPECIFIED SNOMED Code(s): 60421572 (3) Elevated C-reactive protein (CRP) Current Visit: Yes Status: Acute Code(s): R79.82 - ELEVATED C-REACTIVE PROTEIN (CRP) SNOMED Code(s): 178594706017224 Plan: 1. Dr. Acosta recommends holding off on steroids until biopsies can be reviewed. Continue with Questran twice daily give 2 hours before or after meals. Imodium 2 mg 4 times daily. Return to office in 2 weeks for reevaluation. Assessment and plan a care discussed with Dr. Acosta
[2018-01-03] MEDS ORDERED: DIPHENOX-ATROP 2.5-0.025 MG 1 EACH TAB PO SCH (13:00)
[2018-01-03] MEDS ORDERED: LOPERAMIDE 2 MG CAP PO SCH ×2 (13:00)
[2018-01-03] MEDS: LOPERAMIDE 2 MG CAP PO SCH ×3 (13:25→20:07)
--- NOTE | 2018-01-03 15:55 | P.PN ---
<Annemarie Esposito M - Last Filed: 01/03/18 15:50> Subjective Progress Note Date: 01/03/18 72-year-old female sitting resting in bed states less stools. Stool diary in progress has had 2 stools this morning states there less loose patient states that she has been thinking about it and would not have a problem with being started on steroids. Patient did have a colonoscopy done the day before it showed evidence of sigmoid diverticulosis no evidence of diverticulitis biopsies obtained Objective - Vital Signs Vital signs: Vital Signs Temp 98.2 F 01/03/18 14:41 Pulse 71 01/03/18 14:41 Resp 16 01/03/18 14:41 BP 95/57 01/03/18 14:41 Pulse Ox 97 01/03/18 14:41 Intake & Output 01/02/18 01/03/18 01/03/18 18:59 06:59 18:59 Intake Total 150 1400 480 Balance 150 1400 480 Weight 52.844 kg 52.844 kg Intake: IV 150 Oral 1400 480 Other: Voiding Method Bedside Commode Bedside Commode # Voids 3 1 3 # Bowel Movements 4 1 1 - Exam Physical exam 72-year-old female sitting up in bed appears in no acute distress talkative Lungs adequate air movement bilaterally Heart S1-S2 audible regular Abdomen soft nontender states has had 2 bowel movements today no blood noted currently reporting no abdominal pain regular diet tolerating no nausea vomiting Extremities no edema - Labs CBC & Chem 7: 01/03/18 07:34 01/03/18 07:34 Labs: Abnormal Lab Results - Last 24 Hours (Table) 01/03/18 Range/Units 07:34 Chloride 112 H (98-107) mmol/L Carbon Dioxide 19 L (22-30) mmol/L Calcium 8.1 L (8.4-10.2) mg/dL Microbiology - Last 24 Hours (Table) 12/31/17 12:53 Blood Culture - Preliminary Blood No Growth after 72 hours 12/31/17 12:05 Blood Culture - Preliminary Blood No Growth after 72 hours 12/31/17 16:53 Urine Culture - Final Urine,Voided Escherichia coli Assessment and Plan Assessment: Impression Chronic diarrhea with a history of colitis possible self-limiting infectious or inflammatory hypo-magnesium family history positive for inflammatory bowel disease daughter A recent cholecystectomy October 2017 Acute abdominal pain with nausea vomiting acute on chronic diarrhea possible related to colitis Possible UTI not ruled out Status post colonoscopy done on January 02 showed evidence of sigmoid diverticulosis no evidence of diverticulitis plan Follow up on the biopsy path report GI and DVT prophylaxis Per GIs recommendations hold off on steroids until the biopsies are reviewed. Continue Questran twice daily as ordered Imodium as ordered Will follow with you The above impression and plan of care have been discussed and directed by signing physician. Annemarie Esposito nurse practitioner acting as scribe for signing physician. <Eufemia Salazar - Last Filed: 01/03/18 21:09> Objective - Vital Signs Vital signs: Vital Signs Temp 98.2 F 01/03/18 14:41 Pulse 71 01/03/18 14:41 Resp 16 01/03/18 14:41 BP 95/57 01/03/18 14:41 Pulse Ox 97 01/03/18 14:41 Intake & Output 01/03/18 01/03/18 01/04/18 06:59 18:59 06:59 Intake Total 1400 480 Balance 1400 480 Weight 52.844 kg 52.844 kg Intake: Oral 1400 480 Other: Voiding Method Bedside Commode Bedside Commode # Voids 1 3 # Bowel Movements 1 1 - Labs CBC & Chem 7: 01/03/18 07:34 01/03/18 07:34 Labs: Abnormal Lab Results - Last 24 Hours (Table) 01/03/18 01/03/18 Range/Units 07:34 07:34 Chloride 112 H (98-107) mmol/L Carbon Dioxide 19 L (22-30) mmol/L Calcium 8.1 L (8.4-10.2) mg/dL C-Reactive Protein 36.2 H (<10.0) mg/L Microbiology - Last 24 Hours (Table) 12/31/17 12:53 Blood Culture - Preliminary Blood No Growth after 72 hours 12/31/17 12:05 Blood Culture - Preliminary Blood No Growth after 72 hours 12/31/17 16:53 Urine Culture - Final Urine,Voided Escherichia coli Assessment and Plan (1) Colitis Current Visit: Yes Status: Acute Code(s): K52.9 - NONINFECTIVE GASTROENTERITIS AND COLITIS, UNSPECIFIED SNOMED Code(s): 73521396 (2) Chronic diarrhea Current Visit: No Status: Acute Code(s): K52.9 - NONINFECTIVE GASTROENTERITIS AND COLITIS, UNSPECIFIED SNOMED Code(s): 739412348 Plan: Wishes to proceed with steroid therapy to control colitis. Diarrhea has improved with Lomotil. She reports intolerance to cholestyramine
[2018-01-03] MEDS ORDERED: 0.9% NACL WITH KCL 40 MEQ/L 1,000 ML IV SCH (16:30)
[2018-01-03 22:58] VITALS: BP 120/65; PULSE 78; TEMP 97.9
--- NOTE | 2018-01-03 23:03 | P.PN ---
Subjective Progress Note Date: 01/03/18 Progress note being dictated for Dr. Patrick Interval history: This a 72-year-old female admitted with acute renal failure, diarrhea, acute UTI and multiple other medical issues in a patient with history of ischemic colitis, dehydration syndrome, chronic diarrhea, right hydronephrosis. Diarrhea tested negative for C. difficile colitis. Patient is recent cholecystectomy, 10/[address] Curtis. This morning complains of nausea, vomiting, ongoing diarrhea, diffuse abdominal tenderness. T-max 101.5. Denies chest pain, palpitations or shortness of breath. No labs currently available. 01/01/2018 afebrile, normal WBC. Diet had been decreased to clear liquids yesterday given nausea and vomiting. No further emesis, nausea improving. Diarrhea mildly improved this morning-no bleeding noted. Denies abdominal pain .Potassium down to 3.3, magnesium 1.5. Evaluated by both GI and surgery with recommendations noted. Scheduled for colonoscopy in a.m. with GI. 01/02/2018 maintained on IV Cipro and Flagyl as per infectious disease completed prep for colonoscopy this afternoon. Staff reports clear return. Potassium 3.8. Maintained on gentle IV fluid hydration with potassium. Denies abdominal pain, no emesis, mild nausea this morning-subsided. Afebrile, normal WBC. Urine culture reporting gram-negative bacilli. Denies chest pain, palpitations or shortness of breath. 01/03/18 2 at colonoscopy yesterday, reporting sigmoid diverticulosis with no inflammatory bowel disease , biopsies obtained. Tolerating a regular diet with no nausea or vomiting. Diarrhea persists, reports 2 episodes this morning. Denies abdominal tenderness. Denies chest pain, palpitations or increased shortness of breath. Maintaining O2 sats of high 90s on room air. Review of systems: CONSTITUTIONAL: No fever, generalized fatigue HEENT: No recent visual problems or hearing problems. Denied any sore throat. CARDIOVASCULAR: No chest pain, orthopnea, PND, no palpitations, no syncope. PULMONARY: No shortness of breath, no cough, no hemoptysis. GASTROINTESTINAL:diarrhea, no nausea, no vomiting, no abdominal pain. Normoactive bowel sounds. NEUROLOGICAL: No headaches, no weakness, no numbness. HEMATOLOGICAL: Denies any bleeding or petechiae. GENITOURINARY: Denies any burning micturition, frequency, or urgency. MUSCULOSKELETAL/RHEUMATOLOGICAL: Denies any joint pain, swelling, or any muscle pain. ENDOCRINE: Denies any polyuria or polydipsia. PSYCHIATRIC: No anxiety, no depression The rest of the 14 point review of systems is negative Active Medications Acetaminophen (Tylenol Tab) 650 mg PO Q4H PRN PRN Reason: Mild Pain Last Admin: 12/31/17 20:38 Dose: 650 mg Aspirin (Aspirin) 81 mg PO DAILY [facility] Last Admin: 01/03/18 08:38 Dose: 81 mg Cholestyramine Resin (Questran) 4 gm PO PC-BID@0930,1930 [facility] Last Admin: 01/03/18 16:45 Dose: Not Given Ciprofloxacin (Cipro) 500 mg PO BID [facility] Last Admin: 01/03/18 20:07 Dose: 500 mg Metronidazole 500 mg/ IV (Solution) 100 mls @ 100 mls/hr IVPB Q8HR [facility] Last Admin: 01/03/18 15:15 Dose: 100 mls/hr Potassium Chloride/Sodium Chloride (Ns-Kcl 40 Meq/L Iv Solution) 1,000 mls @ 20 mls/hr IV .Q24H [facility] Last Admin: 01/03/18 16:45 Dose: 20 mls/hr Loperamide HCl (Imodium) 2 mg PO QID [facility] Last Admin: 01/03/18 20:07 Dose: 2 mg Loratadine (Claritin) 10 mg PO DAILY [facility] Last Admin: 01/03/18 09:09 Dose: 10 mg Lorazepam (Ativan) 0.5 mg IV Q6HR PRN PRN Reason: Anxiety Miscellaneous Information (Magnesium Per Protocol) 1 each MISCELLANE DAILY PRN ; Protocol PRN Reason: Per Protocol Miscellaneous Information (Potassium Per Protocol) 1 each MISCELLANE DAILY PRN ; Protocol PRN Reason: Per Protocol Naloxone HCl (Narcan) 0.2 mg IV Q2M PRN PRN Reason: Opioid Reversal Ondansetron HCl (Zofran) 4 mg IVP Q8HR PRN PRN Reason: Nausea And Vomiting Last Admin: 01/02/18 07:42 Dose: 4 mg Pantoprazole Sodium (Protonix) 40 mg PO AC-BRKFST [facility] Temazepam (Restoril) 15 mg PO HS PRN PRN Reason: Insomnia Objective - Vital Signs Vital signs: Vital Signs Temp 98.2 F 01/03/18 14:41 Pulse 71 01/03/18 14:41 Resp 16 01/03/18 14:41 BP 95/57 01/03/18 14:41 Pulse Ox 97 01/03/18 14:41 Intake & Output 01/03/18 01/03/18 01/04/18 06:59 18:59 06:59 Intake Total 1400 480 Balance 1400 480 Weight 52.844 kg 52.844 kg 52.844 kg Intake: Oral 1400 480 Other: Voiding Method Bedside Commode Bedside Commode Bedside Commode # Voids 1 3 1 # Bowel Movements 1 1 - Exam PHYSICAL EXAM: VITAL SIGNS: As above GENERAL: Sitting up in bed, no acute distress. HEENT: Conjunctivae normal. eyes normal. Oral mucosa dry NECK: No JVD. No thyroid enlargement. No LNs CARDIOVASCULAR: S1, S2 muffled. No murmur RESPIRATION: Breath sounds diminished in the bases. No rhonchi or crackles. ABDOMEN: Soft, nondistended, mild diffuse tenderness. No guarding. no masses palpable. Positive Bowel sounds LEGS: No edema. no swelling PSYCHIATRY: Alert and oriented -3, mood and affect normal. NERVOUS SYSTEM: Cranial N 2-12 grossly normal. Moves all 4 limbs. Diffuse weakness No focal deficits. Skin: no ulcer no rash Joints: No active swelling. No inflammation. Lymphatic system. No LN neck axilla or groin. Microbiology 12/31/17 12:53 Blood Blood Culture - Preliminary No Growth after 72 hours 12/31/17 12:05 Blood Blood Culture - Preliminary No Growth after 72 hours 12/31/17 16:53 Urine,Voided Urine Culture - Final Escherichia coli 12/29/17 08:34 Stool Stool Culture - Final - Labs CBC & Chem 7: 01/03/18 07:34 01/03/18 07:34 Labs: Abnormal Lab Results - Last 24 Hours (Table) 01/03/18 01/03/18 Range/Units 07:34 07:34 Chloride 112 H (98-107) mmol/L Carbon Dioxide 19 L (22-30) mmol/L Calcium 8.1 L (8.4-10.2) mg/dL C-Reactive Protein 36.2 H (<10.0) mg/L Microbiology - Last 24 Hours (Table) 12/31/17 12:53 Blood Culture - Preliminary Blood No Growth after 72 hours 12/31/17 12:05 Blood Culture - Preliminary Blood No Growth after 72 hours 12/31/17 16:53 Urine Culture - Final Urine,Voided Escherichia coli Assessment and Plan Assessment: 1. Acute abdominal pain, accompanied by nausea, vomiting, acute on chronic diarrhea, possible colitis in a patient with history of ischemic colitis. Status post colonoscopy reporting sigmoid diverticulosis, no inflammatory bowel disease, biopsies obtained. 2. Acute renal failure secondary to the above 3. CAD, history of NM 4. Hypomagnesemia 5. Hypokalemia 6. Acute UTI with E. coli Plan: Continue current medication regime ,monitoring and symptomatic treatment. Low-dose Imodium, continue on Questran.. Maintain 24 hour stool chart at bedside, including frequency, consistency-discussed with RN. Lactose-free, low fiber diet. IV antibiotics as per infectious disease. The impression and plan of care has been dictated as directed. : I performed a history and examination of this patient, discussed the same with the dictator. I agree with the dictator's note ,documented as a scribe. Any additional findings or plans will be noted.
--- NOTE | 2018-01-04 04:43 | PN ---
PROGRESS NOTE DATE OF SERVICE: 01/03/2018. REASON FOR FOLLOW UP: Diarrhea and question of colitis. INTERVAL HISTORY: The patient is afebrile. The patient is status post colonoscopy yesterday. The patient tolerated the procedure. Did mention she is still having diarrhea though. No abdominal pain. No nausea, no vomiting. No chest pain, shortness of breath or cough. PHYSICAL EXAMINATION: On admission, blood pressure 95/57 with a pulse of 71. Temperature 98.2. She is 97% on room air. General description is an elderly female, lying in bed in no distress. Respiratory system: Unlabored breathing. Clear to auscultation anteriorly. Heart S1, S2. Regular rate and rhythm. Abdomen soft, no tenderness. LABS: Hemoglobin 11.5, white count 5.6, BUN of 7, creatinine 0.86. DIAGNOSTIC IMPRESSION AND PLAN: Patient with diarrhea with concern for possible colitis the CT. She did have a colonoscopy with no evidence of any colitis. culture has been negative. Currently on Cipro and Flagyl may benefit from a trial of steroids. We will discuss that further with the Gastroenterology. Continue supportive care. MMODL / IJN: [id number] /
[2018-01-04] MEDS ORDERED: PANTOPRAZOLE 40 MG TABLET PO SCH (07:30)
[2018-01-04] MEDS: CIPROFLOXACIN HCL 500 MG TAB PO SCH (07:39)
[2018-01-04] MEDS: metroNIDAZOLE-NS PMX 500 MG in SALINE 1 100ML.BAG IVPB SCH (07:39)
[2018-01-04] MEDS: ASPIRIN 81 MG PO SCH (07:40)
[2018-01-04] MEDS: LORATADINE 10 MG TAB PO SCH (07:40)
[2018-01-04] MEDS: CHOLESTYRAMINE (WITH SUGAR) 4 GM PACKET PO SCH (07:40)
[2018-01-04] MEDS: LOPERAMIDE 2 MG CAP PO SCH ×2 (07:44→12:08)
--- NOTE | 2018-01-04 08:32 | P.PN ---
Subjective Progress Note Date: 01/04/18 Principal diagnosis: colitis diarrhea 1 BM last night. Feel better. Denies AP. CRP improved. Objective - Vital Signs Vital signs: Vital Signs Temp 97.9 F 01/03/18 22:58 Pulse 78 01/03/18 22:58 Resp 16 01/03/18 22:58 BP 120/65 01/03/18 22:58 Pulse Ox 93 L 01/03/18 22:58 Intake & Output 01/03/18 01/04/18 01/04/18 18:59 06:59 18:59 Intake Total 480 100 Balance 480 100 Weight 52.844 kg 52.844 kg Intake: Oral 480 100 Other: Voiding Method Bedside Commode Bedside Commode # Voids 3 2 # Bowel Movements 1 - Exam General appearance: The patient is alert, oriented, in no acute distress. HET: Head is normocephalic and atraumatic. Pupils are equal and reactive. Oropharynx is clear without lesions. Neck: Supple without lymphadenopathy. Trachea midline. Heart: S1 S2. Regular rate and rhythm. Lungs: No crackles or wheezes are heard. Abdomen: Soft, nontender, nondistended with bowel sounds. No peritoneal signs. No palpable organomegaly or masses. Extremities: Normal skin color and turgor. No cyanosis, rash, ulceration, clubbing, or edema. Radial and pedal pulses are 2/4 bilaterally. Neurological: No focal deficits. Strength and sensation are grossly intact. - Labs CBC & Chem 7: 01/03/18 07:34 01/03/18 07:34 Labs: Abnormal Lab Results - Last 24 Hours (Table) 01/03/18 Range/Units 07:34 C-Reactive Protein 36.2 H (<10.0) mg/L Microbiology - Last 24 Hours (Table) 12/31/17 12:53 Blood Culture - Preliminary Blood No Growth after 72 hours 12/31/17 12:05 Blood Culture - Preliminary Blood No Growth after 72 hours 12/31/17 16:53 Urine Culture - Final Urine,Voided Escherichia coli Assessment and Plan (1) Chronic diarrhea Narrative/Plan: Status post EGD colonoscopy sigmoid diverticulosis no evidence of diverticulitis or inflammatory bowel disease biopsies pending. Underlying microscopic colitis cannot be entirely exclude. Stool studies unremarkable. Current Visit: No Status: Acute Code(s): K52.9 - NONINFECTIVE GASTROENTERITIS AND COLITIS, UNSPECIFIED SNOMED Code(s): 307445401 (2) Colitis Current Visit: Yes Status: Acute Code(s): K52.9 - NONINFECTIVE GASTROENTERITIS AND COLITIS, UNSPECIFIED SNOMED Code(s): 35908036 (3) Elevated C-reactive protein (CRP) Current Visit: Yes Status: Acute Code(s): R79.82 - ELEVATED C-REACTIVE PROTEIN (CRP) SNOMED Code(s): 797453418788801 Plan: 1. Dr. Acosta recommends holding off on steroids until biopsies can be reviewed. Continue with Questran twice daily give 2 hours before or after meals. Lomotil 2 tabs 4 times daily. Return to office in 2 weeks for reevaluation. Assessment and plan a care discussed with Dr. Acosta
[2018-01-04 09:10] LABS: Basophils # (A) 0.1 k/uL (0-0.2); Basophils % (A) 2 %; Eosinophils # (A) 0.6 k/uL (0-0.7); Eosinophils % (A) 8 %; HCT 40.2 % (34.0-46.0); HGB 12.7 gm/dL (11.4-16.0); Lymphocytes # (A) 2.3 k/uL (1.0-4.8); Lymphocytes % (A) 31 %; MCH 29.1 pg (25.0-35.0); MCHC 31.6 g/dL (31.0-37.0); MCV 92.3 fL (80.0-100.0); Mean Platelet Volume 7.5; Monocytes # (A) 0.4 k/uL (0-1.0); Monocytes % (A) 5 %; Neutrophils # (A) 3.9 k/uL (1.3-7.7); Neutrophils % (A) 52 %; Platelet Count 393 k/uL (150-450); RBC 4.36 m/uL (3.80-5.40); RDW 13.9 % (11.5-15.5); WBC 7.4 k/uL (3.8-10.6)
[2018-01-04 09:37] LABS: Calcium 8.4 mg/dL (8.4-10.2)
[2018-01-04 09:54] LABS: Potassium 4.8 mmol/L (3.5-5.1)
--- NOTE | 2018-01-04 14:02 | PN ---
PROGRESS NOTE DATE OF SERVICE: 01/04/2018. REASON FOR FOLLOWUP: Diarrhea. INTERVAL HISTORY: The patient is afebrile. She is currently feeling better. Breathing comfortably. Her diarrhea has resolved. No nausea, vomiting. Tolerating her diet. No chest pain, shortness of breath or cough. PHYSICAL EXAMINATION: On examination, blood pressure 120/65, pulse of 70, temperature is 97.9. She is 93% on room air. General description is an elderly female lying in bed in no distress. RESPIRATORY SYSTEM: Unlabored breathing, clear to auscultation anteriorly. HEART: S1, S2. Regular rate and rhythm. ABDOMEN: Soft. No tenderness. LABS: White count 7.4 with a BUN of 6, creatinine 0.90. DIAGNOSTIC IMPRESSION AND PLAN: Patient with diarrhea. So far infection workup has been negative. Antibiotic can be safely discontinued. May benefit from a short course of oral Questran to be given as they did diarrhea and to follow up with GI on biopsy. Family present at bedside. Their questions were answered. MMODL / IJN: [id number] /
--- NOTE | 2018-01-04 18:38 | DS ---
DISCHARGE SUMMARY FINAL DIAGNOSES: 1. Acute abdominal pain, nausea, vomiting, diarrhea, possible acute colitis, status post colonoscopy next. 2. Diverticulosis on colonoscopy. 3. Status post biopsy. 4. Acute renal failure secondary to dehydration. 5. Coronary artery disease and myocardial infarction. 6. Hypomagnesia. 7. Hypokalemia. 8. Acute urinary tract infection with Escherichia coli present on admission. DISCHARGE DISPOSITION: Patient will be discharged in stable condition with guarded prognosis. HISTORY OF PRESENT ILLNESS: This 72-year-old woman with a past medical problems was admitted with diarrhea, dehydration, as well as renal failure treated with IV fluids. Patient was seen by multiple consultants including Dr. Jiménez and Dr. Salazar. Biopsy is as mentioned earlier. The colonoscopy findings as mentioned earlier. Infection workup was negative and Questran has been given empirically. The patient improved significantly. On exam, vitals are stable. CARDIOVASCULAR: S1 and S2. ABDOMEN: Soft. NERVOUS SYSTEM: No focal deficits. LABS: CBC within normal limits. Sodium 130, potassium 4.8. DISCHARGE ADVICE AND MEDICATIONS: 1. Diet is soft, low residue, lactose-free. MEDICATIONS: 1. Tylenol 325 mg q.4h p.r.n. 2. Aspirin 81 mg p.o. daily. 3. Biotin 5 mg p.o. daily. 4. Calcium 600 mg p.o. daily. 5. Vitamin D3 10,000 daily. 6. Cholestyramine 4 g a.c. and at bedtime p.r.n. 7. Imodium 2 mg p.o. q.i.d. p.r.n. 8. Protonix 40 mg daily. 9. Potassium 90 mg p.o. daily. 10.Coenzyme Q 100 mg p.o. daily. CBC and BMP with Dr. Alisia Jennings. Once again the patient will be discharged in stable condition with guarded prognosis. MMODL / IJN: [id number] /
== END 2018-01-04 13:39 | disposition home or self-care (01) | DRG 392 ==
LOC: EC 13:41 → 4MS4W 18:36 → OBSVTOIN 12-29 14:50
PROVIDERS: ADMIT Hospitalist; ATTEND Hospitalist
PROC: 0DBE8ZX Excision of Large Intestine, Via Natural or Artificial Opening Endoscopic, Diagnostic (ICD-10-PCS; 2018-01-02)
PROC: 0DBB8ZX Excision of Ileum, Via Natural or Artificial Opening Endoscopic, Diagnostic (ICD-10-PCS; principal; 2018-01-02 14:30)
DX: K52.9 Noninfective gastroenteritis and colitis, unspecified (principal); N17.9 Acute kidney failure, unspecified; N39.0 Urinary tract infection, site not specified; B96.20 Unspecified Escherichia coli [E. coli] as the cause of diseases classified elsewhere; E83.42 Hypomagnesemia; E86.0 Dehydration; E87.6 Hypokalemia; I10 Essential (primary) hypertension; I25.10 Atherosclerotic heart disease of native coronary artery without angina pectoris; K57.30 Diverticulosis of large intestine without perforation or abscess without bleeding; R32 Unspecified urinary incontinence; R79.82 Elevated C-reactive protein (CRP); I25.2 Old myocardial infarction; Z79.82 Long term (current) use of aspirin; Z80.3 Family history of malignant neoplasm of breast; Z87.442 Personal history of urinary calculi; Z87.891 Personal history of nicotine dependence; Z88.0 Allergy status to penicillin; Z88.1 Allergy status to other antibiotic agents; Z90.710 Acquired absence of both cervix and uterus; Z84.89 Family history of other specified conditions
CPT/HCPCS: 36415; 45380; 71045; 74177; 80048; 80053; 81001; 82150; 83690; 83735; 84443; 85025; 85610; 85730; 86140; 87040; 87045; 87046; 87077; 87086; 87186; 87324; 87328; 87329; 88305; 88313; 96361; 96374; 96375; 99285

== ENCOUNTER → 2018-08-01 | Outpatient (CLI) | payer MEDICARE, BC ==
[2018-08-01 15:56] LABS: HCT 39.2 % (34.0-46.0); HGB 12.4 gm/dL (11.4-16.0); Hypochromasia Slight; MCH 30.2 pg (25.0-35.0); MCHC 31.7 g/dL (31.0-37.0); MCV 95.4 fL (80.0-100.0); Platelet Count 336 k/uL (150-450); RBC 4.11 m/uL (3.80-5.40); RDW 13.7 % (11.5-15.5); WBC 6.9 k/uL (3.8-10.6)
[2018-08-01 16:52] LABS: Erythrocyte Sedimentation Rate 23 mm/hr (0-20)
[2018-08-02 03:51] LABS: Albumin 3.6 g/dL (3.80-4.90); Albumin/Globulin Ratio 1.33 (1.20-2.10); Anion Gap 7.7 mmol/L (4.00-12.00); Calcium 9.1 mg/dL (8.7-10.3); Carbon Dioxide 28.3 mmol/L (21.6-31.8); Globulin 2.7 g/dL (1.6-3.3); Potassium 4.9 mmol/L (3.5-5.5); Total Bilirubin 0.4 mg/dL (0.3-1.2); Total Protein 6.3 g/dL (6.2-8.2)
[2018-08-02 03:58] LABS: T4, Free (Free Thyroxine) 1.3 ng/dL (0.80-1.80)
[2018-08-02 04:07] LABS: Gliadin AB IgA, Unit 9.9 U/mL
== END | disposition home or self-care (01) ==
LOC: LABWHC1 14:47
DX: K52.831 Collagenous colitis (principal); K52.9 Noninfective gastroenteritis and colitis, unspecified
CPT/HCPCS: 36415; 80053; 83516; 83630; 84439; 84443; 85027; 85652; 86140

== ENCOUNTER → 2019-05-21 | Outpatient (CLI) | payer MEDICARE, BC ==
--- NOTE | 2019-05-21 12:00 | XR ---
EXAMINATION TYPE: XR KUB DATE OF EXAM: 05/21/2019 11:36 AM CLINICAL HISTORY: Known right-sided nephrolithiasis. TECHNIQUE: Single supine KUB image of the abdomen is obtained. COMPARISON: 10/16/[address] of 12/28/2017. FINDINGS: There are multiple calcifications overlying the right renal shadow. The largest measures 1. 7 cm enhanced increase in size from the prior. There are at least 4 other smaller calculi. Calculus o verlying the left renal shadow measures 0.6 cm. No suspicious calcifications in the pelvis. There is levoscoliosis of the thoracolumbar spine and severe degenerative changes of the osseous structures wi th diffuse osseous demineralization. Lung bases are clear. No dilated large or small bowel. IMPRESSION: Increasing size and number of the known right renal calculi. Subcentimeter left renal jorge culus is also seen.
== END | disposition home or self-care (01) ==
LOC: RADXRMAIN 11:23
PROVIDERS: ATTEND Urology
DX: N20.0 Calculus of kidney (principal)
CPT/HCPCS: 74018

== ENCOUNTER 2019-07-14 07:23 | Day surgery (SDC) | payer MEDICARE, BC ==
[2019-07-04 15:09] VITALS: BMI 17.4
[~2019-07-14 07:23] MED LIST: LACTATED RINGERS 1,000 ML IV SCH; MOXIFLOXACIN HCL 0.5% DROPS 3 ML BTL OP ONE; TETRACAINE 0.5% OPHTH (PF) DROPS 4 ML BTL OP ONE; TIMOLOL 0.5% OPHTH DROPS 5 ML BTL OP ONE
[2019-07-14 08:24] VITALS: TEMP 97.7
[2019-07-14] MEDS: CYCLOPENTOLATE 1% OPHTH SOLN 2 ML BTL OP ONE ×3 (08:25→08:39)
[2019-07-14] MEDS: PHENYLEPHRINE 2.5% OPHTH DRP 2ML OP NR ×3 (08:30→08:41)
[2019-07-14] MEDS ORDERED: MIDAZOLAM 2 MG/2 ML VIAL ONE (09:04)
[2019-07-14] MEDS ORDERED: EPINEPHrine (PF) 0.3 ML in BALANCED SALT IRRIG SOLN COMB2 500 ML IRRIGATION ONE (09:09)
[2019-07-14] MEDS ORDERED: LIDOCAINE 1% (PF) 10MG/ML VIAL SQ ONE (09:11)
[2019-07-14] MEDS ORDERED: BALANCED SALT IRRIG SOLN COMB2 15 ML IRRIG.SOLN IRRIGATION ONE (09:11)
[2019-07-14] MEDS ORDERED: HYALURONATE SODIUM INTRAOCULAR 1 EACH SYRINGE (12MG/ML) INTRAOCULA ONE (09:11)
--- NOTE | 2019-07-14 09:37 | P.OP ---
Date of Procedure: 07/14/19 Preoperative Diagnosis: NS Postoperative Diagnosis: same Procedure(s) Performed: PIOL, OS Implants: MX60E 25.00 Anesthesia: MAC Surgeon: Frank Aguilar Pathology: none sent Condition: stable Disposition: observation Indications for Procedure: blurry vision Operative Findings: no complications
[2019-07-14 09:58] VITALS: BP 144/65; PULSE 85; RESP 18
--- NOTE | 2019-07-15 06:02 | OP ---
OPERATIVE REPORT DATE OF SURGERY: 07/14/2019 SURGEON: Dr. Frank Aguilar PREOPERATIVE DIAGNOSIS: Nuclear sclerosis, cortical sclerosis. POSTOPERATIVE DIAGNOSIS: Nuclear sclerosis, cortical sclerosis. OPERATION: Phacoemulsification of cataract and intraocular lens implant of the left eye. ESTIMATED BLOOD LOSS: Zero. SPECIMEN TAKEN: None. NARRATIVE: After obtaining the appropriate consent, the patient was brought to the Operating Room where the patient was placed under cardiac monitoring and prepped and draped in the usual sterile manner. At the 5 o'clock position a 15 degree super sharp blade was used to create a paracentesis followed by instillation of 1% Xylocaine MPF 50:50 mix with BSS into the anterior chamber. This was followed by Amvisc to stabilize the anterior chamber. At the 3 o'clock position a self-sealing corneal flap incision was created using 2.8 mm naomy keratome. A cystotome was used to initiate a continuous tear capsulorrhexis which was completed with the Utrata forceps. A Binkhorst cannula was used to hydrodissect the lens nucleus followed by hydrodelineation. Phacoemulsification of the lens was performed utilizing phaco chop in 15.31 seconds at 22% power. The remaining cortical material was removed using the irrigation aspiration mode followed by additional 1% Xylocaine MPF into the anterior chamber followed by viscoelastic to stabilize the capsular bag. A [employer] MX60E 25.0 diopters posterior chamber lens was placed into the capsular bag without difficulty. The remaining viscoelastic material was removed from the anterior chamber with the irrigation/aspiration. Balanced salt solution was used to normalize the intraocular pressure. The incision was checked for watertight integrity. The patient then received two drops of 0.5% timolol followed by two drops Vigamox, was lightly patched and shielded in the usual manner. There were no complications from the procedure. The patient tolerated the procedure well and was returned to recovery in good condition. MMODL / IJN: [id number] /
== END 2019-07-14 10:19 | disposition home or self-care (01) ==
LOC: OR 07:23
PROVIDERS: ATTEND Ophthalmology
DX: H25.812 Combined forms of age-related cataract, left eye (principal); H25.11 Age-related nuclear cataract, right eye; H16.123 Filamentary keratitis, bilateral; M35.01 Sjogren syndrome with keratoconjunctivitis; H52.03 Hypermetropia, bilateral; H52.4 Presbyopia; H00.023 Hordeolum internum right eye, unspecified eyelid; H00.026 Hordeolum internum left eye, unspecified eyelid; I25.2 Old myocardial infarction; F39 Unspecified mood [affective] disorder; K21.9 Gastro-esophageal reflux disease without esophagitis; H91.90 Unspecified hearing loss, unspecified ear; J30.2 Other seasonal allergic rhinitis; K51.90 Ulcerative colitis, unspecified, without complications; Z87.442 Personal history of urinary calculi; Z79.82 Long term (current) use of aspirin; Z79.899 Other long term (current) drug therapy; Z90.710 Acquired absence of both cervix and uterus; Z90.49 Acquired absence of other specified parts of digestive tract; Z91.040 Latex allergy status; Z88.0 Allergy status to penicillin; Z88.1 Allergy status to other antibiotic agents; Z88.8 Allergy status to other drugs, medicaments and biological substances; Z82.3 Family history of stroke; Z82.49 Family history of ischemic heart disease and other diseases of the circulatory system; Z83.3 Family history of diabetes mellitus; Z82.61 Family history of arthritis; Z83.511 Family history of glaucoma; Z83.518 Family history of other specified eye disorder; Z97.3 Presence of spectacles and contact lenses; Z97.4 Presence of external hearing-aid
CPT/HCPCS: 66984; C1780; J2250; J0171; J2001

== ENCOUNTER 2019-08-06 10:12 | Day surgery (SDC) | payer MEDICARE, BC ==
[2019-08-04 10:59] VITALS: BMI 17.4
[~2019-08-06 10:12] MED LIST changes: +LIDOCAINE 1% 20 ML VIAL (10MG/ML) FOR IV START INTRADERMA PRN
[2019-08-06 11:26] VITALS: RESP 16; TEMP 97.1
[2019-08-06] MEDS: PHENYLEPHRINE 2.5% OPHTH DRP 2ML OP NR ×3 (11:35→12:03)
[2019-08-06] MEDS: CYCLOPENTOLATE 1% OPHTH SOLN 2 ML BTL OP ONE ×3 (11:39→12:17)
[2019-08-06] MEDS ORDERED: MIDAZOLAM 2 MG/2 ML VIAL ONE (12:40)
[2019-08-06] MEDS ORDERED: fentaNYL (PF) 50 MCG/ML 2 ML AMP ONE (12:40)
[2019-08-06] MEDS ORDERED: HYALURONATE SODIUM INTRAOCULAR 1 EACH SYRINGE (12MG/ML) INTRAOCULA ONE (12:51)
[2019-08-06] MEDS ORDERED: LIDOCAINE 1% (PF) 10MG/ML VIAL SQ ONE (12:51)
[2019-08-06] MEDS ORDERED: BALANCED SALT IRRIG SOLN COMB2 15 ML IRRIG.SOLN IRRIGATION ONE (12:51)
[2019-08-06] MEDS ORDERED: EPINEPHrine (PF) 0.3 ML in BALANCED SALT IRRIG SOLN COMB2 500 ML IRRIGATION ONE (12:52)
--- NOTE | 2019-08-06 13:16 | P.OP ---
Date of Procedure: 08/06/19 Preoperative Diagnosis: NS Postoperative Diagnosis: same Procedure(s) Performed: PIOL, OD Implants: MX60E 23.00 Anesthesia: MAC Surgeon: Frank Aguilar Pathology: none sent Condition: stable Disposition: same day Indications for Procedure: blurry vision Operative Findings: No complications
[2019-08-06 13:42] VITALS: BP 161/98; PULSE 82
--- NOTE | 2019-08-06 21:16 | OP ---
OPERATIVE REPORT DATE OF SURGERY: August 06, 2019. PROCEDURE: Phacoemulsification of cataract and intraocular lens implant of the right eye. PUBLIC ACCOUNTANT: PREOPERATIVE DIAGNOSIS: Nuclear sclerosis. POSTOPERATIVE DIAGNOSIS: Nuclear sclerosis. OPERATION: Clear cornea phacoemulsification of cataract right OD eye. ESTIMATED BLOOD LOSS: Zero. SPECIMEN TAKEN: None. NARRATIVE: After obtaining the appropriate consent, the patient was brought to the Operating Room where the patient was placed under cardiac monitoring and prepped and draped in the usual sterile manner. At the 11 o'clock position a 15 degree super sharp blade was used to create a paracentesis followed by instillation of 1% Xylocaine MPF 50:50 mix with BSS into the anterior chamber. This was followed by Amvisc to stabilize the anterior chamber. At the 9 o'clock position a self-sealing corneal flap incision was created using 2.8 mm naomy keratome. A cystotome was used to initiate a continuous tear capsulorrhexis which was completed with the Utrata forceps. A Binkhorst cannula was used to hydrodissect the lens nucleus followed by hydrodelineation. Phacoemulsification of the lens was performed utilizing phaco-chop in 9.23 seconds at 8% power. The remaining cortical material was removed using the irrigation aspiration mode followed by additional 1% Xylocaine MPF into the anterior chamber followed by viscoelastic to stabilize the capsular bag. A [employer] MX60E 23.0 diopter posterior chamber lens was placed into the capsular bag without difficulty. The remaining viscoelastic material was removed from the anterior chamber with the irrigation/aspiration. Balanced salt solution was used to normalize the intraocular pressure. The incision was checked for watertight integrity. The patient then received two drops of 0.5% timolol followed by two drops Vigamox, was lightly patched and shielded in the usual manner. There were no complications from the procedure. The patient tolerated the procedure well and was returned to recovery in good condition. MMODL / IJN: [id number] /
== END 2019-08-06 13:59 | disposition home or self-care (01) ==
LOC: OR 10:12
PROVIDERS: ATTEND Ophthalmology
DX: H25.11 Age-related nuclear cataract, right eye (principal); H16.123 Filamentary keratitis, bilateral; H52.03 Hypermetropia, bilateral; H52.4 Presbyopia; H00.026 Hordeolum internum left eye, unspecified eyelid; H00.023 Hordeolum internum right eye, unspecified eyelid; I25.2 Old myocardial infarction; F41.9 Anxiety disorder, unspecified; K21.9 Gastro-esophageal reflux disease without esophagitis; I08.1 Rheumatic disorders of both mitral and tricuspid valves; I27.20 Pulmonary hypertension, unspecified; I10 Essential (primary) hypertension; R41.3 Other amnesia; H91.93 Unspecified hearing loss, bilateral; M35.01 Sjogren syndrome with keratoconjunctivitis; Z98.42 Cataract extraction status, left eye; Z96.1 Presence of intraocular lens; Z79.899 Other long term (current) drug therapy; Z79.82 Long term (current) use of aspirin; Z90.710 Acquired absence of both cervix and uterus; Z90.49 Acquired absence of other specified parts of digestive tract; Z88.0 Allergy status to penicillin; Z88.8 Allergy status to other drugs, medicaments and biological substances; Z91.048 Other nonmedicinal substance allergy status; Z91.040 Latex allergy status; Z98.890 Other specified postprocedural states; Z87.442 Personal history of urinary calculi; Z87.19 Personal history of other diseases of the digestive system; Z97.4 Presence of external hearing-aid; Z83.511 Family history of glaucoma; Z83.518 Family history of other specified eye disorder; Z82.61 Family history of arthritis; Z80.3 Family history of malignant neoplasm of breast; Z83.3 Family history of diabetes mellitus; Z82.49 Family history of ischemic heart disease and other diseases of the circulatory system; Z82.3 Family history of stroke
CPT/HCPCS: 66984; V2632; J2250; J0171; J3010; J2001